=== PATIENT | female | born 1935 | race Caucasian/White ===

== ENCOUNTER 2017-06-14 16:25 | Inpatient (IN) | payer MEDICARE ==
[2017-06-14 17:36] VITALS: BP 154/78
[2017-06-14] MEDS ORDERED: Magnesium Hydroxide (MOM) 30 mL UDC PO PRN ×2 (18:02→21:34)
[2017-06-15] MEDS: Levothyroxine 0.1 Mg Tab PO SCH (06:47)
[2017-06-15] MEDS ORDERED: Ferrous Sulfate 325 MG TAB PO SCH (09:00)
[2017-06-15] MEDS ORDERED: Multivitamin w/ Minerals Tab PO SCH (09:00)
[2017-06-15] MEDS ORDERED: LEVOTHYROXINE SODIUM 200 MCG PO SCH (09:00)
[2017-06-15] MEDS: Ferrous Sulfate 325 MG TAB PO SCH (09:24)
[2017-06-15] MEDS: Multivitamin w/ Minerals Tab PO SCH (09:24)
--- NOTE | 2017-06-15 12:56 | Psychosocial Evaluation ---
DATE OF SERVICE: 06/15/2017 IDENTIFYING INFORMATION: The patient is an 81-year-old female. CHIEF COMPLAINT: No answer. HISTORY OF PRESENT ILLNESS: The patient was admitted on the hope for danger to others, grave disability. She was seen by Dr. Vance, who put her on hold and that was yesterday in the afternoon. The patient herself was a poor historian. She was trying to hit staff with medical equipment, closed fist. She was delusional, confused, disoriented, requiring redirection. When I talked to her, she thought she was fighting with her granddaughter. Unable to give me information, very irritable, angry. PAST PSYCHIATRIC HISTORY: Unobtainable. She refused to give me any answers. ALLERGIES: She has no known drug allergies. MEDICATIONS: The patient was on Risperdal 2 mg at bedtime, trazodone 50 mg at bedtime, Ativan 1 mg every 4 hours as needed, iron 325 mg daily, and Pletal 100 mg twice a day, Calciferol, vitamin D 5000 units daily and Lotensin for blood pressure 20 mg daily, and trazodone 50 mg at bedtime. FAMILY AND SOCIAL HISTORY: The patient reported that she is and she have 2 children, a boy with 60 years of age and a girl with 50 years of age. She started talking about granddaughters, started rambling. Unable to give me further information nor could tell me what she did for living and if there is any substance abuse or any history of abuse or any family history. MENTAL STATUS EXAMINATION: The patient is appropriately dressed, not well groomed. She was feeding herself. She was irritable, angry, uncooperative, unable to do a formal mental status exam because of her agitation, irritability, internally preoccupied. Her [facility] memory is poor, unable to tell me her age. Recent memory is poor. She cannot remember events led to her admission. Her insight and judgment is impaired. IMPRESSION: AXIS I: Rule out bipolar disorder with psychosis and depression. MEDICAL DIAGNOSES: Deferred to the medical doctor. Her assets, she is accepting treatment. Negative poor coping skills. INITIAL TREATMENT PLAN: The patient will be continued with Risperdal. We will do group therapy, milieu therapy, individual therapy. ESTIMATED LENGTH OF STAY: 8-10 days. DISCHARGE CRITERIA: Decreasing psychosis, agitation. After discharge, outpatient treatment. [facility]# [id number]
--- NOTE | 2017-06-15 13:40 | Internal Medicine Prog Note ---
Internal Medicine Subjective - Subjective Service Date: 06/15/17 ([id number]) Internal Medicine Objective - Physical Exam Vitals and I&O: Vital Signs Temp 97.8 F 06/14/17 17:08 Pulse 68 06/15/17 09:24 Resp 20 06/14/17 17:08 BP 133/70 06/15/17 09:24 Pulse Ox Intake & Output 06/14/17 06/15/17 06/15/17 18:59 06:59 18:59 Weight (lbs) 157 lb 4.8 oz Active Medications: Current Medications Benazepril HCl (Lotensin) 20 mg PO DAILY [facility] Stop: 08/14/17 08:59 Last Admin: 06/15/17 09:24 Dose: Not Given Cholecalciferol (Vitamin D3) 5,000 iu PO DAILY [facility] Stop: 08/14/17 08:59 Last Admin: 06/15/17 09:24 Dose: Not Given Cilostazol (Pletal) 100 mg PO BID [facility] Stop: 08/14/17 08:59 Last Admin: 06/15/17 09:24 Dose: Not Given Ferrous Sulfate (Iron) 325 mg PO DAILY [facility] Stop: 08/14/17 08:59 Last Admin: 06/15/17 09:24 Dose: Not Given Levothyroxine Sodium (Synthroid) 0.2 mg PO QDAC [facility] Stop: 08/14/17 07:29 Last Admin: 06/15/17 06:47 Dose: Not Given Lorazepam (Ativan) 1 mg PO Q4HR PRN; Protocol PRN Reason: Agitation Stop: 08/13/17 18:14 Magnesium Hydroxide (Milk Of Magnesia) 30 ml PO BID PRN PRN Reason: Constipation Stop: 08/13/17 18:01 Risperidone (Risperdal) 2 mg PO HS [facility] PRN Reason: Protocol Stop: 08/13/17 20:59 Last Admin: 06/14/17 21:30 Dose: Not Given Trazodone HCl (Desyrel) 25 mg PO HS [facility] PRN Reason: Protocol Stop: 08/13/17 20:59 Last Admin: 06/14/17 21:21 Dose: Not Given Internal Medicine Assmt/Plan - Assessment Assessment: htn dementia psychosis hypothyroidism
--- NOTE | 2017-06-15 13:59 | History & Physical ---
ADMIT DATE: 06/15/2017 CHIEF COMPLAINT: Agitation. HISTORY OF PRESENT ILLNESS: This is an 81-year-old female who was transferred from [facility] due to aggressive behavior towards staff and being delusional and confused and disoriented. The patient is now admitted to the Geropsych Unit. PAST MEDICAL HISTORY: Hypertension, hypothyroidism, dementia, psychosis. PAST SURGICAL HISTORY: Unknown. ALLERGIES: No drug allergies. MEDICATIONS: Please see medication sheet. FAMILY HISTORY: Noncontributory. SOCIAL HISTORY: The patient is a jail resident. REVIEW OF SYSTEMS: Unable to obtain due to patient's mental status. The patient is confused. PHYSICAL EXAMINATION: GENERAL: This is an elderly female, awake, confused and agitated. VITAL SIGNS: Temperature 97.8, heart rate 72, blood pressure 154/78, respirations 20. HEENT: Head, normocephalic, atraumatic. NECK: Supple. No mass. LUNGS: Clear bilaterally. ABDOMEN: Soft, nontender. ASSESSMENT: 1. Agitation. 2. Hypertension. 3. Hypothyroidism. 4. Dementia. 5. Psychosis. PLAN: We will monitor patient's blood pressure. We will adjust patient's blood pressure medications accordingly. We will continue to follow this patient. JOB# [id number]
[2017-06-16] MEDS: Levothyroxine 0.1 Mg Tab PO SCH (06:53)
[2017-06-16] MEDS: Multivitamin w/ Minerals Tab PO SCH (09:50)
[2017-06-16] MEDS: Ferrous Sulfate 325 MG TAB PO SCH (09:50)
--- NOTE | 2017-06-16 20:08 | Progress Notes ---
DATE: 06/16/[address] Sndyer. Case was discussed with staff of patient and reviewed records. The patient continues to be irritable, unpredictable, impulsive and needing redirection. Continues to be uncooperative. Continues to have poor insight about the whole situation and how she ended up here. Continues to be at risk because of her aggressive behavior. She has been compliant with her medication with no side effects, no sedation, nausea, no extrapyramidal symptoms and she is on Risperdal 2 mg at bedtime, trazodone 25 mg at bedtime. We will continue to work with the patient in group therapy, milieu therapy, and adjust medications as needed. JOB# [id number]
[2017-06-17] MEDS: Levothyroxine 0.1 Mg Tab PO SCH (06:39)
[2017-06-17] MEDS: Multivitamin w/ Minerals Tab PO SCH (08:59)
[2017-06-17] MEDS: Ferrous Sulfate 325 MG TAB PO SCH (08:59)
--- NOTE | 2017-06-17 16:45 | Internal Medicine Prog Note ---
Internal Medicine Subjective - Subjective Service Date: 06/17/17 Patient seen and examined:: with staff Patient is:: awake, verbal Per staff patient has:: tolerating meds Internal Medicine Objective - Physical Exam Vitals and I&O: Vital Signs Temp 98.8 F 06/17/17 14:45 Pulse 60 06/17/17 14:45 Resp 20 06/17/17 14:45 BP 150/81 06/17/17 14:45 Pulse Ox 95 06/17/17 14:45 Intake & Output 06/16/17 06/17/17 06/17/17 18:59 06:59 18:59 Other: Stool Characteristics Black Soft Liquid Active Medications: Current Medications Benazepril HCl (Lotensin) 20 mg PO DAILY [facility] Stop: 08/14/17 08:59 Last Admin: 06/17/17 08:59 Dose: Not Given Cholecalciferol (Vitamin D3) 5,000 iu PO DAILY [facility] Stop: 08/14/17 08:59 Last Admin: 06/17/17 08:59 Dose: Not Given Cilostazol (Pletal) 100 mg PO BID [facility] Stop: 08/14/17 08:59 Last Admin: 06/17/17 08:59 Dose: Not Given Ferrous Sulfate (Iron) 325 mg PO DAILY [facility] Stop: 08/14/17 08:59 Last Admin: 06/17/17 08:59 Dose: Not Given Levothyroxine Sodium (Synthroid) 0.2 mg PO QDAC [facility] Stop: 08/14/17 07:29 Last Admin: 06/17/17 06:39 Dose: Not Given Lorazepam (Ativan) 1 mg PO Q4HR PRN; Protocol PRN Reason: Agitation Stop: 08/13/17 18:14 Magnesium Hydroxide (Milk Of Magnesia) 30 ml PO BID PRN PRN Reason: Constipation Stop: 08/13/17 18:01 Mupirocin (Bactroban Oint) 1 appl NS BID [facility] Stop: 06/21/17 17:01 Last Admin: 06/17/17 08:59 Dose: Not Given Risperidone (Risperdal) 2 mg PO HS [facility] PRN Reason: Protocol Stop: 08/13/17 20:59 Last Admin: 06/16/17 22:59 Dose: Not Given Trazodone HCl (Desyrel) 25 mg PO HS [facility] PRN Reason: Protocol Stop: 08/13/17 20:59 Last Admin: 06/16/17 22:59 Dose: Not Given General: alert HEENT: NC/AT, PERRLA Neck: Supple Lungs: CTAB Cardiovascular: RRR Abdomen: soft, non-tender, non-distended, positive bowel sound Neurological: alert Internal Medicine Assmt/Plan - Assessment Assessment: htn dementia psychosis hypothyroidism - Plan Plan: monitor bp will adjust bp meds accordingly continue current orders
[2017-06-18] MEDS: Levothyroxine 0.1 Mg Tab PO SCH (06:41)
[2017-06-18] MEDS: Multivitamin w/ Minerals Tab PO SCH (08:06)
[2017-06-18] MEDS: Ferrous Sulfate 325 MG TAB PO SCH (08:06)
--- NOTE | 2017-06-18 13:32 | Internal Medicine Prog Note ---
Internal Medicine Subjective - Subjective Service Date: 06/18/17 Patient is:: awake, verbal Per staff patient has:: tolerating meds Internal Medicine Objective - Physical Exam Vitals and I&O: Vital Signs Temp 98.8 F 06/17/17 14:45 Pulse 60 06/17/17 14:45 Resp 20 06/17/17 14:45 BP 150/81 06/17/17 14:45 Pulse Ox 95 06/17/17 14:45 Intake & Output 06/17/17 06/18/17 06/18/17 18:59 06:59 18:59 Other: Stool Characteristics Soft Liquid Active Medications: Current Medications Benazepril HCl (Lotensin) 20 mg PO DAILY [facility] Stop: 08/14/17 08:59 Last Admin: 06/18/17 08:06 Dose: Not Given Cholecalciferol (Vitamin D3) 5,000 iu PO DAILY [facility] Stop: 08/14/17 08:59 Last Admin: 06/18/17 08:06 Dose: Not Given Cilostazol (Pletal) 100 mg PO BID [facility] Stop: 08/14/17 08:59 Last Admin: 06/18/17 08:06 Dose: Not Given Ferrous Sulfate (Iron) 325 mg PO DAILY [facility] Stop: 08/14/17 08:59 Last Admin: 06/18/17 08:06 Dose: Not Given Levothyroxine Sodium (Synthroid) 0.2 mg PO QDAC [facility] Stop: 08/14/17 07:29 Last Admin: 06/18/17 06:41 Dose: Not Given Lorazepam (Ativan) 1 mg PO Q4HR PRN; Protocol PRN Reason: Agitation Stop: 08/13/17 18:14 Magnesium Hydroxide (Milk Of Magnesia) 30 ml PO BID PRN PRN Reason: Constipation Stop: 08/13/17 18:01 Mupirocin (Bactroban Oint) 1 appl NS BID [facility] Stop: 06/21/17 17:01 Last Admin: 06/18/17 08:06 Dose: Not Given Risperidone (Risperdal) 2 mg PO HS [facility] PRN Reason: Protocol Stop: 08/13/17 20:59 Last Admin: 06/17/17 21:06 Dose: Not Given Trazodone HCl (Desyrel) 25 mg PO HS [facility] PRN Reason: Protocol Stop: 08/13/17 20:59 Last Admin: 06/17/17 21:07 Dose: Not Given General: alert HEENT: NC/AT, PERRLA Neck: Supple Lungs: CTAB Cardiovascular: RRR Abdomen: soft, non-tender, non-distended, positive bowel sound Neurological: alert Internal Medicine Assmt/Plan - Assessment Assessment: htn dementia psychosis hypothyroidism - Plan Plan: monitor bp will adjust bp meds accordingly continue current orders
[2017-06-19] MEDS: Levothyroxine 0.1 Mg Tab PO SCH (06:47)
--- NOTE | 2017-06-19 07:23 | Progress Notes ---
DATE: 06/17/2017 SUBJECTIVE: The patient seen, chart reviewed, and discussed with staff. The patient continues to be irritable, intrusive with poor boundaries and unpredictable, requiring numerous redirections, continues to have very poor recollection of events leading to admission and very disoriented. She has, however, been compliant with medications, following unit rules with minimal redirections. PLAN: The patient continues to be very confused, unpredictable and impulsive. It is felt that she will require continued inpatient care for stabilization and treatment. We will monitor the patient on a daily basis for response to medications and titrate medications as needed. [facility]# [id number]
--- NOTE | 2017-06-19 07:27 | Progress Notes ---
DATE: SUBJECTIVE: The patient seen, chart reviewed, and discussed with staff. The patient continues to be very irritable, agitated, impulsive, and unpredictable. She requires numerous redirections. She has, however, been compliant with medications, following unit rules with minimal redirections. PLAN: The patient continues to be unpredictable and impulsive. It is felt that she will require continued inpatient care for stabilization and treatment. We will monitor the patient on a daily basis for response to medications and titrate medications as needed. JOB# [id number]
[2017-06-19] MEDS: Multivitamin w/ Minerals Tab PO SCH (14:13)
[2017-06-19] MEDS: Ferrous Sulfate 325 MG TAB PO SCH (14:13)
--- NOTE | 2017-06-19 15:01 | Internal Medicine Prog Note ---
Internal Medicine Subjective - Subjective Patient seen and examined:: with staff, chart reviewed Patient is:: awake, verbal, interactive Per staff patient has:: no adverse event, no episodes of fall, poor oral intake , confused, tolerating meds Internal Medicine Objective - Physical Exam Vitals and I&O: Vital Signs Temp 97.9 F 06/18/17 16:13 Pulse 74 06/18/17 16:13 Resp 20 06/18/17 16:13 BP 166/91 06/18/17 16:13 Pulse Ox 92 06/18/17 16:13 Intake & Output 06/18/17 06/19/17 06/19/17 18:59 06:59 18:59 Intake Total 120 Balance 120 Intake: Oral 120 Other: # Voids 1 # Bowel Movements 0 Active Medications: Current Medications Benazepril HCl (Lotensin) 20 mg PO DAILY [facility] Stop: 08/14/17 08:59 Last Admin: 06/19/17 14:13 Dose: Not Given Cholecalciferol (Vitamin D3) 5,000 iu PO DAILY [facility] Stop: 08/14/17 08:59 Last Admin: 06/19/17 14:13 Dose: Not Given Cilostazol (Pletal) 100 mg PO BID [facility] Stop: 08/14/17 08:59 Last Admin: 06/19/17 14:13 Dose: Not Given Ferrous Sulfate (Iron) 325 mg PO DAILY [facility] Stop: 08/14/17 08:59 Last Admin: 06/19/17 14:13 Dose: Not Given Levothyroxine Sodium (Synthroid) 0.2 mg PO QDAC [facility] Stop: 08/14/17 07:29 Last Admin: 06/19/17 06:47 Dose: Not Given Lorazepam (Ativan) 1 mg PO Q4HR PRN; Protocol PRN Reason: Agitation Stop: 08/13/17 18:14 Magnesium Hydroxide (Milk Of Magnesia) 30 ml PO BID PRN PRN Reason: Constipation Stop: 08/13/17 18:01 Mupirocin (Bactroban Oint) 1 appl NS BID [facility] Stop: 06/21/17 17:01 Last Admin: 06/19/17 14:13 Dose: Not Given Risperidone (Risperdal) 2 mg PO HS [facility] PRN Reason: Protocol Stop: 08/13/17 20:59 Last Admin: 06/18/17 20:52 Dose: Not Given Trazodone HCl (Desyrel) 25 mg PO HS [facility] PRN Reason: Protocol Stop: 08/13/17 20:59 Last Admin: 06/18/17 20:52 Dose: Not Given General: alert HEENT: NC/AT, PERRLA Neck: Supple Lungs: CTAB Cardiovascular: RRR Abdomen: soft, non-tender, non-distended, positive bowel sound Neurological: disorganized Internal Medicine Assmt/Plan - Assessment Assessment: - Assessment Assessment: htn dementia psychosis hypothyroidism - Plan Plan: monitor bp will adjust bp meds accordingly continue current orders - Plan Plan: cpm
[2017-06-20] MEDS: Levothyroxine 0.1 Mg Tab PO SCH (06:47)
--- NOTE | 2017-06-20 10:25 | Progress Notes ---
DATE: 06/19/2017 SUBJECTIVE: The patient is currently in the hospital, disoriented, disorganized, talking about God telling her things. The patient was sent over from [facility], grandiose, refusing medications, talking about being in the [employer], trying to hit staff, highly impulsive, unpredictable. Medications were reviewed, but she is refusing. ASSESSMENT: The patient remains symptomatic, still bizarre, disorganized, and delusional. PLAN: The patient is conserved; however, we do not have the conservatorship paperwork. Once we get a copy from the court, we will start to administer medications. JOB# [id number]
--- NOTE | 2017-06-20 17:37 | Internal Medicine Prog Note ---
Internal Medicine Subjective - Subjective Service Date: 06/20/17 Patient is:: awake, verbal, interactive Per staff patient has:: no adverse event, no episodes of fall, poor oral intake , confused, tolerating meds Internal Medicine Objective - Physical Exam Vitals and I&O: Vital Signs Temp 0 F 06/20/17 05:06 Pulse 74 06/19/17 15:08 Resp 20 06/19/17 15:08 BP 157/88 06/19/17 15:08 Pulse Ox 95 06/19/17 15:08 Intake & Output 06/19/17 06/20/17 06/20/17 18:59 06:59 18:59 Intake Total 300 120 Balance 300 120 Intake: Oral 300 120 Other: # Voids 3 3 # Bowel Movements 0 Active Medications: Current Medications Benazepril HCl (Lotensin) 20 mg PO DAILY [facility] Stop: 08/14/17 08:59 Last Admin: 06/19/17 14:13 Dose: Not Given Cholecalciferol (Vitamin D3) 5,000 iu PO DAILY [facility] Stop: 08/14/17 08:59 Last Admin: 06/19/17 14:13 Dose: Not Given Cilostazol (Pletal) 100 mg PO BID [facility] Stop: 08/14/17 08:59 Last Admin: 06/19/17 14:13 Dose: Not Given Ferrous Sulfate (Iron) 325 mg PO DAILY [facility] Stop: 08/14/17 08:59 Last Admin: 06/19/17 14:13 Dose: Not Given Levothyroxine Sodium (Synthroid) 0.2 mg PO QDAC [facility] Stop: 08/14/17 07:29 Last Admin: 06/20/17 06:47 Dose: Not Given Lorazepam (Ativan) 1 mg PO Q4HR PRN; Protocol PRN Reason: Agitation Stop: 08/13/17 18:14 Magnesium Hydroxide (Milk Of Magnesia) 30 ml PO BID PRN PRN Reason: Constipation Stop: 08/13/17 18:01 Mupirocin (Bactroban Oint) 1 appl NS BID [facility] Stop: 06/21/17 17:01 Last Admin: 06/19/17 14:13 Dose: Not Given Risperidone (Risperdal) 2 mg PO HS [facility] PRN Reason: Protocol Stop: 08/13/17 20:59 Last Admin: 01/15/18 21:04 Dose: Not Given Trazodone HCl (Desyrel) 25 mg PO HS [facility] PRN Reason: Protocol Stop: 08/13/17 20:59 Last Admin: 06/19/17 21:04 Dose: Not Given General: alert HEENT: NC/AT, PERRLA Neck: Supple Lungs: CTAB Cardiovascular: RRR Abdomen: soft, non-tender, non-distended, positive bowel sound Neurological: disorganized Internal Medicine Assmt/Plan - Assessment Assessment: htn dementia psychosis hypothyroidism - Plan Plan: monitor bp will adjust bp meds accordingly continue current orders
[2017-06-20] MEDS: Multivitamin w/ Minerals Tab PO SCH (17:53)
[2017-06-20] MEDS: Ferrous Sulfate 325 MG TAB PO SCH (17:53)
--- NOTE | 2017-06-21 03:12 | Progress Notes ---
DATE: 06/20/2017 The patient remains symptomatic, threatening, demanding, stating that I am going to go to senior care, threatening to send me to senior care, still grandiose, refusing medications, talking not being in the [employer], remains paranoid, highly withdrawn, reclusive, impulsive, unpredictable, yelling at times. Medications reviewed. She is refusing, "I won't take them, I won't take them, I won't take them." ASSESSMENT: The patient symptomatic, bizarre, disorganized, still psychotic. PLAN: We will continue to monitor. The patient currently conserved. There are some questions about the date of the initiation of the conservatorship. Once this has been confirmed as August 17 of last year, I will go ahead and medicate against her will given power 8. JOB# [id number]
[2017-06-21] MEDS: Levothyroxine 0.1 Mg Tab PO SCH (06:30)
[2017-06-21] MEDS: Multivitamin w/ Minerals Tab PO SCH (08:00)
[2017-06-21] MEDS: Ferrous Sulfate 325 MG TAB PO SCH (08:00)
--- NOTE | 2017-06-21 13:47 | Internal Medicine Prog Note ---
Internal Medicine Subjective - Subjective Service Date: 06/21/17 Patient is:: awake, verbal, interactive Per staff patient has:: no adverse event, no episodes of fall, poor oral intake , confused, tolerating meds Internal Medicine Objective - Physical Exam Vitals and I&O: Vital Signs Temp 0 F 06/20/17 05:06 Pulse 74 06/19/17 15:08 Resp 20 06/19/17 15:08 BP 157/88 06/19/17 15:08 Pulse Ox 95 06/19/17 15:08 Intake & Output 06/20/17 06/21/17 06/21/17 18:59 06:59 18:59 Intake Total 250 Balance 250 Intake: Oral 250 Other: # Voids 2 # Bowel Movements 0 Active Medications: Current Medications Benazepril HCl (Lotensin) 20 mg PO DAILY [facility] Stop: 08/14/17 08:59 Last Admin: 06/21/17 08:00 Dose: Not Given Cholecalciferol (Vitamin D3) 5,000 iu PO DAILY [facility] Stop: 08/14/17 08:59 Last Admin: 06/21/17 08:00 Dose: Not Given Cilostazol (Pletal) 100 mg PO BID [facility] Stop: 08/14/17 08:59 Last Admin: 06/21/17 08:00 Dose: Not Given Ferrous Sulfate (Iron) 325 mg PO DAILY [facility] Stop: 08/14/17 08:59 Last Admin: 06/21/17 08:00 Dose: Not Given Levothyroxine Sodium (Synthroid) 0.2 mg PO QDAC [facility] Stop: 08/14/17 07:29 Last Admin: 06/21/17 06:30 Dose: Not Given Lorazepam (Ativan) 1 mg PO Q4HR PRN; Protocol PRN Reason: Agitation Stop: 08/13/17 18:14 Magnesium Hydroxide (Milk Of Magnesia) 30 ml PO BID PRN PRN Reason: Constipation Stop: 08/13/17 18:01 Mupirocin (Bactroban Oint) 1 appl NS BID [facility] Stop: 06/21/17 17:01 Last Admin: 06/21/17 08:00 Dose: Not Given Risperidone (Risperdal) 2 mg PO HS [facility] PRN Reason: Protocol Stop: 08/13/17 20:59 Last Admin: 06/20/17 20:36 Dose: Not Given Trazodone HCl (Desyrel) 25 mg PO HS [facility] PRN Reason: Protocol Stop: 08/13/17 20:59 Last Admin: 06/20/17 20:37 Dose: Not Given General: alert HEENT: NC/AT, PERRLA Neck: Supple Lungs: CTAB Cardiovascular: RRR Abdomen: soft, non-tender, non-distended, positive bowel sound Neurological: disorganized Internal Medicine Assmt/Plan - Assessment Assessment: htn dementia psychosis hypothyroidism - Plan Plan: monitor bp will adjust bp meds accordingly continue current orders Nutritional Asmnt/Malnutr-PDOC - Dietary Evaluation Malnutrition Findings (Please click <Entered> for more info): Nutritional Asmnt/Malnutrition Start: 06/21/17 13: 06 Text: Status: Complete Freq: Document 06/21/17 13:06 KIRILL (Rec: 06/21/17 13:21 KIRILLG [email or web address]) Nutritional Asmnt/Malnutrition Patient General Information Nutritional Screening Low Risk Diagnosis psychosis NOS Pertinent Medical Hx/Surgical Hx HTN, hypothyroidism, dementia, psychosis Subjective Information Pt seen sitting on bed at time of visit, confused. Per notes , PO intake 100%. Per NR note, pt refuses medications and care. Current Diet Order/ Nutrition Support mech soft ground Pertinent Medications vitamin D3, iron, synthroid Pertinent Labs no labs Nutritional Hx/Data Height 5 ft 5 in Height (Calculated Centimeters) 165.1 Current Weight (lbs) 157 lb 4.8 oz Weight (Calculated Kilograms) 71.4 Weight (Calculated Grams) 73884.1 [place] Body Weight 125 % [place] Body Weight 126 Body Mass Index (BMI) 26.2 Weight Status Overweight GI Symptoms GI Symptoms None Last BM 06/15 Difficult in: None Skin Integrity/Comment: skin tear on left hand first digit, cyst on right mandibular area Current %PO Good (75-100%) Estimated Nutritional Goals Calories/Kcals/Kg 25-30 Kcals Calculated [id number] Protein g/k Protein Calculated 57 Fluid: ml 1425-1710ml (1ml/kcal) Nutritional Problem No current Nutrition Prob Problem N/A Malnutrition Alert Protein-Calorie Malnutrition N/A Is there a minimum of two criteria No selected? Query Text:Check all the applicable criteria. A minimum of two criteria are recommended for diagnosis of either severe or non-severe malnutrition. Intervention/Recommendation Comments 1. Continue with current diet as ordered. 2. Monitor PO intake, wt, labs and skin integrity 3. F/U as low risk in 7 days, 06/27 Expected Outcomes/Goals Expected Outcomes/Goals 1. PO intake to meet at least 75% of nutritional needs. 2. Wt stability, skin to remain intact.
--- NOTE | 2017-06-22 02:28 | Progress Notes ---
DATE: SUBJECTIVE: The patient seen, chart reviewed, discussed with staff. The patient with yelling episodes, refusing medications, making odd statements such as "I don't like what you had to eat." The patient yelling at me, screaming, stating that she will not take medications, still talking about being in the [employer], still paranoid, withdrawn, reclusive, yelling and screaming episodes, currently gravely disabled and psychotic. ASSESSMENT: The patient remains symptomatic, bizarre, disorganized, still psychotic, yelling and screaming. PLAN: We will continue to monitor. I am trying to confirm the dates of her conservatorship. We will attempt to initiate antipsychotic medications as soon as possible. JOB# [id number]
[2017-06-22] MEDS: Levothyroxine 0.1 Mg Tab PO SCH (06:52)
[2017-06-22] MEDS ORDERED: Haloperidol Lactate 5 mg/mL 1mL Vial IM PRN (08:34)
[2017-06-22] MEDS: Ferrous Sulfate 325 MG TAB PO SCH (08:52)
[2017-06-22] MEDS: Multivitamin w/ Minerals Tab PO SCH (08:53)
--- NOTE | 2017-06-22 13:31 | Internal Medicine Prog Note ---
Internal Medicine Subjective - Subjective Service Date: 06/22/17 Patient is:: awake, verbal, interactive Per staff patient has:: no adverse event, no episodes of fall, poor oral intake , confused, tolerating meds Internal Medicine Objective - Physical Exam Vitals and I&O: Vital Signs Temp 0 F 06/20/17 05:06 Pulse 74 06/19/17 15:08 Resp 20 06/19/17 15:08 BP 157/88 06/19/17 15:08 Pulse Ox 95 06/19/17 15:08 Intake & Output 06/21/17 06/22/17 06/22/17 18:59 06:59 18:59 Intake Total 0 Balance 0 Intake: Oral 0 Active Medications: Current Medications Benazepril HCl (Lotensin) 20 mg PO DAILY [facility] Stop: 08/14/17 08:59 Last Admin: 06/22/17 08:51 Dose: Not Given Benztropine Mesylate (Cogentin) 0.5 mg PO BID [facility] Stop: 08/21/17 08:59 Last Admin: 06/22/17 08:52 Dose: Not Given Cholecalciferol (Vitamin D3) 5,000 iu PO DAILY [facility] Stop: 08/14/17 08:59 Last Admin: 06/22/17 08:52 Dose: Not Given Cilostazol (Pletal) 100 mg PO BID [facility] Stop: 08/14/17 08:59 Last Admin: 06/22/17 08:52 Dose: Not Given Ferrous Sulfate (Iron) 325 mg PO DAILY [facility] Stop: 08/14/17 08:59 Last Admin: 06/22/17 08:52 Dose: Not Given Haloperidol (Haldol) 2 mg PO BID [facility] PRN Reason: Protocol Stop: 08/21/17 08:59 Last Admin: 06/22/17 08:53 Dose: Not Given Haloperidol Lactate (Haldol) 2 mg IM BID PRN PRN Reason: Agitation Stop: 08/21/17 08:33 Levothyroxine Sodium (Synthroid) 0.2 mg PO QDAC [facility] Stop: 08/14/17 07:29 Last Admin: 06/22/17 06:52 Dose: Not Given Lorazepam (Ativan) 1 mg PO Q4HR PRN; Protocol PRN Reason: Agitation Stop: 08/13/17 18:14 Magnesium Hydroxide (Milk Of Magnesia) 30 ml PO BID PRN PRN Reason: Constipation Stop: 08/13/17 18:01 Trazodone HCl (Desyrel) 25 mg PO HS [facility] PRN Reason: Protocol Stop: 08/13/17 20:59 Last Admin: 06/21/17 21:28 Dose: Not Given General: alert HEENT: NC/AT, PERRLA Neck: Supple Lungs: CTAB Cardiovascular: RRR Abdomen: soft, non-tender, non-distended, positive bowel sound Neurological: disorganized Internal Medicine Assmt/Plan - Assessment Assessment: htn dementia psychosis hypothyroidism - Plan Plan: monitor bp will adjust bp meds accordingly continue current orders Nutritional Asmnt/Malnutr-PDOC - Dietary Evaluation Malnutrition Findings (Please click <Entered> for more info): Nutritional Asmnt/Malnutrition Start: 06/21/17 13: 06 Text: Status: Complete Freq: Document 06/21/17 13:06 EZE (Rec: 06/21/17 13:21 [email or web address] [id number]) Nutritional Asmnt/Malnutrition Patient General Information Nutritional Screening Low Risk Diagnosis psychosis NOS Pertinent Medical Hx/Surgical Hx HTN, hypothyroidism, dementia, psychosis Subjective Information Pt seen sitting on bed at time of visit, confused. Per notes , PO intake 100%. Per NR note, pt refuses medications and care. Current Diet Order/ Nutrition Support [facility] soft ground Pertinent Medications vitamin D3, iron, synthroid Pertinent Labs no labs Nutritional Hx/Data Height 5 ft 5 in Height (Calculated Centimeters) 165.1 Current Weight (lbs) 157 lb 4.8 oz Weight (Calculated Kilograms) 71.4 Weight (Calculated Grams) 94868.1 [place] Body Weight 125 % [place] Body Weight 126 Body Mass Index (BMI) 26.2 Weight Status Overweight GI Symptoms GI Symptoms None Last BM 06/15 Difficult in: None Skin Integrity/Comment: skin tear on left hand first digit, cyst on right mandibular area Current %PO Good (75-100%) Estimated Nutritional Goals Calories/Kcals/Kg 25-30 Kcals Calculated 7398-0636 Protein g/k Protein Calculated 57 Fluid: ml 1425-1710ml (1ml/kcal) Nutritional Problem No current Nutrition Prob Problem N/A Malnutrition Alert Protein-Calorie Malnutrition N/A Is there a minimum of two criteria No selected? Query Text:Check all the applicable criteria. A minimum of two criteria are recommended for diagnosis of either severe or non-severe malnutrition. Intervention/Recommendation Comments 1. Continue with current diet as ordered. 2. Monitor PO intake, wt, labs and skin integrity 3. F/U as low risk in 7 days, 06/27 Expected Outcomes/Goals Expected Outcomes/Goals 1. PO intake to meet at least 75% of nutritional needs. 2. Wt stability, skin to remain intact.
--- NOTE | 2017-06-23 02:05 | Progress Notes ---
DATE: 06/22/2017 SUBJECTIVE: The patient seen, chart reviewed, discussed with staff. The patient yelling, screaming, stating that people are the devil, stating that she does not want to take any medications, refusing medications. She is conserved with ____, we will initiate medications even against her will at this time. She remains psychotic, delusional, bizarre, reclusive, refusing treatment and care at times, yelling at staff. ASSESSMENT: The patient with ongoing psychotic agitation, symptomatic and psychotic, believing people around her are the devil. PLAN: We will continue to monitor. We will initiate Haldol with an IM backup for medication refusals. Given the severity of her ongoing symptoms, she is not safe for discharge. [facility]# [id number]
[2017-06-23] MEDS: Levothyroxine 0.1 Mg Tab PO SCH (06:38)
[2017-06-23] MEDS: Multivitamin w/ Minerals Tab PO SCH ×2 (09:12→14:25)
[2017-06-23] MEDS: Ferrous Sulfate 325 MG TAB PO SCH ×2 (09:12→14:25)
--- NOTE | 2017-06-23 14:09 | Internal Medicine Prog Note ---
Internal Medicine Subjective - Subjective Service Date: 06/23/17 Patient is:: awake, verbal, interactive Per staff patient has:: no adverse event, no episodes of fall, poor oral intake , confused, tolerating meds Internal Medicine Objective - Physical Exam Vitals and I&O: Vital Signs Temp 0 F 06/20/17 05:06 Pulse 74 06/19/17 15:08 Resp 20 06/19/17 15:08 BP 157/88 06/19/17 15:08 Pulse Ox 95 06/19/17 15:08 Intake & Output 06/22/17 06/23/17 06/23/17 18:59 06:59 18:59 Intake Total 60 Balance 60 Intake: Oral 60 Other: # Voids 1 Active Medications: Current Medications Benazepril HCl (Lotensin) 20 mg PO DAILY [facility] Stop: 08/14/17 08:59 Last Admin: 06/23/17 09:35 Dose: Not Given Benztropine Mesylate (Cogentin) 0.5 mg PO BID [facility] Stop: 08/21/17 08:59 Last Admin: 06/23/17 09:35 Dose: Not Given Cholecalciferol (Vitamin D3) 5,000 iu PO DAILY [facility] Stop: 08/14/17 08:59 Last Admin: 06/22/17 08:52 Dose: Not Given Cilostazol (Pletal) 100 mg PO BID [facility] Stop: 08/14/17 08:59 Last Admin: 06/23/17 09:35 Dose: Not Given Ferrous Sulfate (Iron) 325 mg PO DAILY [facility] Stop: 08/14/17 08:59 Last Admin: 06/22/17 08:52 Dose: Not Given Haloperidol (Haldol) 2 mg PO BID [facility] PRN Reason: Protocol Stop: 08/21/17 08:59 Last Admin: 06/23/17 09:35 Dose: Not Given Haloperidol Lactate (Haldol) 2 mg IM BID PRN PRN Reason: Agitation Stop: 08/21/17 08:33 Levothyroxine Sodium (Synthroid) 0.2 mg PO QDAC [facility] Stop: 08/14/17 07:29 Last Admin: 06/23/17 06:38 Dose: Not Given Lorazepam (Ativan) 1 mg PO Q4HR PRN; Protocol PRN Reason: Agitation Stop: 08/13/17 18:14 Magnesium Hydroxide (Milk Of Magnesia) 30 ml PO BID PRN PRN Reason: Constipation Stop: 08/13/17 18:01 Trazodone HCl (Desyrel) 25 mg PO HS [facility] PRN Reason: Protocol Stop: 08/13/17 20:59 Last Admin: 06/22/17 20:06 Dose: Not Given General: alert HEENT: NC/AT, PERRLA Neck: Supple Lungs: CTAB Cardiovascular: RRR Abdomen: soft, non-tender, non-distended, positive bowel sound Neurological: disorganized Internal Medicine Assmt/Plan - Assessment Assessment: htn dementia psychosis hypothyroidism - Plan Plan: monitor bp will adjust bp meds accordingly continue current orders Nutritional Asmnt/Malnutr-PDOC - Dietary Evaluation Malnutrition Findings (Please click <Entered> for more info): Nutritional Asmnt/Malnutrition Start: 06/21/17 13: 06 Text: Status: Complete Freq: Document 06/21/17 13:06 EZE (Rec: 06/21/17 13:21 KIRILL [email or web address]) Nutritional Asmnt/Malnutrition Patient General Information Nutritional Screening Low Risk Diagnosis psychosis NOS Pertinent Medical Hx/Surgical Hx HTN, hypothyroidism, dementia, psychosis Subjective Information Pt seen sitting on bed at time of visit, confused. Per notes , PO intake 100%. Per NR note, pt refuses medications and care. Current Diet Order/ Nutrition Support [facility] soft ground Pertinent Medications vitamin D3, iron, synthroid Pertinent Labs no labs Nutritional Hx/Data Height 5 ft 5 in Height (Calculated Centimeters) 165.1 Current Weight (lbs) 157 lb 4.8 oz Weight (Calculated Kilograms) 71.4 Weight (Calculated Grams) 98200.1 [place] Body Weight 125 % [place] Body Weight 126 Body Mass Index (BMI) 26.2 Weight Status Overweight GI Symptoms GI Symptoms None Last BM 06/15 Difficult in: None Skin Integrity/Comment: skin tear on left hand first digit, cyst on right mandibular area Current %PO Good (75-100%) Estimated Nutritional Goals Calories/Kcals/Kg 25-30 Kcals Calculated 1306-6849 Protein g/k Protein Calculated 57 Fluid: ml 1425-1710ml (1ml/kcal) Nutritional Problem No current Nutrition Prob Problem N/A Malnutrition Alert Protein-Calorie Malnutrition N/A Is there a minimum of two criteria No selected? Query Text:Check all the applicable criteria. A minimum of two criteria are recommended for diagnosis of either severe or non-severe malnutrition. Intervention/Recommendation Comments 1. Continue with current diet as ordered. 2. Monitor PO intake, wt, labs and skin integrity 3. F/U as low risk in 7 days, 06/27 Expected Outcomes/Goals Expected Outcomes/Goals 1. PO intake to meet at least 75% of nutritional needs. 2. Wt stability, skin to remain intact.
--- NOTE | 2017-06-23 23:54 | Progress Notes ---
DATE: 06/23/2017 Case was discussed with staff of the patient and the patient continues to have yelling and screaming. Paranoid could be of people trying to harm her. Refusing medication, at times, she is conserved. Dr. Snyder again initiated medication because of her psychosis, delusional behavior, bizarre behavior, refusing care and had her start on Haldol 2 mg twice a day to be given IM if refuses p.o. and today, she is not acting out that she has been described before. No extrapyramidal symptoms. No sedation. No nausea. We will continue outpatient group therapy and milieu therapy, and adjust medications as needed. JOB# [id number]
[2017-06-24] MEDS: Levothyroxine 0.1 Mg Tab PO SCH (06:30)
[2017-06-24] MEDS: Multivitamin w/ Minerals Tab PO SCH (09:00)
[2017-06-24] MEDS: Ferrous Sulfate 325 MG TAB PO SCH (09:00)
--- NOTE | 2017-06-24 15:55 | Internal Medicine Prog Note ---
Internal Medicine Subjective - Subjective Service Date: 06/24/17 Patient is:: awake, verbal, interactive Per staff patient has:: no adverse event, no episodes of fall, poor oral intake , confused, tolerating meds Internal Medicine Objective - Physical Exam Vitals and I&O: Vital Signs Temp 0 F 06/20/17 05:06 Pulse 0 06/24/17 09:00 Resp 20 06/19/17 15:08 BP 0/0 06/24/17 09:00 Pulse Ox 95 06/19/17 15:08 Active Medications: Current Medications Benazepril HCl (Lotensin) 20 mg PO DAILY [facility] Stop: 08/14/17 08:59 Last Admin: 06/24/17 09:00 Dose: Not Given Benztropine Mesylate (Cogentin) 0.5 mg PO BID [facility] Stop: 08/21/17 08:59 Last Admin: 06/24/17 09:00 Dose: Not Given Cholecalciferol (Vitamin D3) 5,000 iu PO DAILY [facility] Stop: 08/14/17 08:59 Last Admin: 06/24/17 09:00 Dose: Not Given Cilostazol (Pletal) 100 mg PO BID [facility] Stop: 08/14/17 08:59 Last Admin: 06/24/17 09:00 Dose: Not Given Ferrous Sulfate (Iron) 325 mg PO DAILY [facility] Stop: 08/14/17 08:59 Last Admin: 06/24/17 09:00 Dose: Not Given Haloperidol (Haldol) 2 mg PO BID [facility] PRN Reason: Protocol Stop: 08/21/17 08:59 Last Admin: 06/24/17 09:00 Dose: Not Given Haloperidol Lactate (Haldol) 2 mg IM BID PRN PRN Reason: Agitation Stop: 08/21/17 08:33 Levothyroxine Sodium (Synthroid) 0.2 mg PO QDAC [facility] Stop: 08/14/17 07:29 Last Admin: 06/24/17 06:30 Dose: Not Given Lorazepam (Ativan) 1 mg PO Q4HR PRN; Protocol PRN Reason: Agitation Stop: 08/13/17 18:14 Magnesium Hydroxide (Milk Of Magnesia) 30 ml PO BID PRN PRN Reason: Constipation Stop: 08/13/17 18:01 Trazodone HCl (Desyrel) 25 mg PO HS [facility] PRN Reason: Protocol Stop: 08/13/17 20:59 Last Admin: 06/23/17 20:56 Dose: Not Given General: alert HEENT: NC/AT, PERRLA Neck: Supple Lungs: CTAB Cardiovascular: RRR Abdomen: soft, non-tender, non-distended, positive bowel sound Neurological: disorganized Internal Medicine Assmt/Plan - Assessment Assessment: htn dementia psychosis hypothyroidism - Plan Plan: monitor bp will adjust bp meds accordingly continue current orders Nutritional Asmnt/Malnutr-PDOC - Dietary Evaluation Malnutrition Findings (Please click <Entered> for more info): Nutritional Asmnt/Malnutrition Start: 06/21/17 13: 06 Text: Status: Complete Freq: Document 06/21/17 13:06 EZE (Rec: 06/21/17 13:21 EZE [email or web address]) Nutritional Asmnt/Malnutrition Patient General Information Nutritional Screening Low Risk Diagnosis psychosis NOS Pertinent Medical Hx/Surgical Hx HTN, hypothyroidism, dementia, psychosis Subjective Information Pt seen sitting on bed at time of visit, confused. Per notes , PO intake 100%. Per NR note, pt refuses medications and care. Current Diet Order/ Nutrition Support [facility] soft ground Pertinent Medications vitamin D3, iron, synthroid Pertinent Labs no labs Nutritional Hx/Data Height 5 ft 5 in Height (Calculated Centimeters) 165.1 Current Weight (lbs) 157 lb 4.8 oz Weight (Calculated Kilograms) 71.4 Weight (Calculated Grams) 86820.1 [place] Body Weight 125 % [place] Body Weight 126 Body Mass Index (BMI) 26.2 Weight Status Overweight GI Symptoms GI Symptoms None Last BM 06/15 Difficult in: None Skin Integrity/Comment: skin tear on left hand first digit, cyst on right mandibular area Current %PO Good (75-100%) Estimated Nutritional Goals Calories/Kcals/Kg 25-30 Kcals Calculated 1110-6320 Protein g/k Protein Calculated 57 Fluid: ml 1425-1710ml (1ml/kcal) Nutritional Problem No current Nutrition Prob Problem N/A Malnutrition Alert Protein-Calorie Malnutrition N/A Is there a minimum of two criteria No selected? Query Text:Check all the applicable criteria. A minimum of two criteria are recommended for diagnosis of either severe or non-severe malnutrition. Intervention/Recommendation Comments 1. Continue with current diet as ordered. 2. Monitor PO intake, wt, labs and skin integrity 3. F/U as low risk in 7 days, 06/27 Expected Outcomes/Goals Expected Outcomes/Goals 1. PO intake to meet at least 75% of nutritional needs. 2. Wt stability, skin to remain intact.
--- NOTE | 2017-06-24 20:22 | Progress Notes ---
DATE: 06/24/[address] Snyder. Case was discussed with staff of the patient, reviewed records. The patient apparently has been refusing medication, so Dr. Snyder initiated Haldol Decanoate on her as she is conserved. The patient also apparently she is refusing to allow the staff to dress her. When I talked to her, she was in bed, a lot of blood on the pillow. 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 She was naked on the upper side of her body. She was easily agitated, irritable, unpredictable, impulsive, continues to be unable to make safe plan for self-care. She was upset with the line of questioning, I was having and loud. We will continue to work with the patient in group therapy, milieu therapy and adjust medications as needed. JOB# [id number]
[2017-06-25] MEDS: Levothyroxine 0.1 Mg Tab PO SCH (06:56)
[2017-06-25] MEDS: Ferrous Sulfate 325 MG TAB PO SCH (09:43)
[2017-06-25] MEDS: Multivitamin w/ Minerals Tab PO SCH (09:44)
--- NOTE | 2017-06-25 13:38 | Internal Medicine Prog Note ---
Internal Medicine Subjective - Subjective Service Date: 06/25/17 Patient is:: awake, verbal, interactive Per staff patient has:: no adverse event, no episodes of fall, poor oral intake , confused, tolerating meds Internal Medicine Objective - Physical Exam Vitals and I&O: Vital Signs Temp 0 F 06/20/17 05:06 Pulse 77 06/25/17 09:42 Resp 20 06/19/17 15:08 BP 130/82 06/25/17 09:42 Pulse Ox 95 06/19/17 15:08 Intake & Output 06/24/17 06/25/17 06/25/17 18:59 06:59 18:59 Intake Total 600 Balance 600 Intake: Oral 600 Other: # Voids 3 Active Medications: Current Medications Benazepril HCl (Lotensin) 20 mg PO DAILY [facility] Stop: 08/14/17 08:59 Last Admin: 06/25/17 09:42 Dose: Not Given Benztropine Mesylate (Cogentin) 0.5 mg PO BID [facility] Stop: 08/21/17 08:59 Last Admin: 06/25/17 09:43 Dose: Not Given Cholecalciferol (Vitamin D3) 5,000 iu PO DAILY [facility] Stop: 08/14/17 08:59 Last Admin: 06/25/17 09:43 Dose: Not Given Cilostazol (Pletal) 100 mg PO BID [facility] Stop: 08/14/17 08:59 Last Admin: 06/25/17 09:43 Dose: Not Given Ferrous Sulfate (Iron) 325 mg PO DAILY [facility] Stop: 08/14/17 08:59 Last Admin: 06/25/17 09:43 Dose: Not Given Haloperidol (Haldol) 2 mg PO BID [facility] PRN Reason: Protocol Stop: 08/21/17 08:59 Last Admin: 06/25/17 09:43 Dose: Not Given Haloperidol Lactate (Haldol) 2 mg IM BID PRN PRN Reason: Agitation Stop: 08/21/17 08:33 Levothyroxine Sodium (Synthroid) 0.2 mg PO QDAC [facility] Stop: 08/14/17 07:29 Last Admin: 06/25/17 06:56 Dose: Not Given Lorazepam (Ativan) 1 mg PO Q4HR PRN; Protocol PRN Reason: Agitation Stop: 08/13/17 18:14 Magnesium Hydroxide (Milk Of Magnesia) 30 ml PO BID PRN PRN Reason: Constipation Stop: 08/13/17 18:01 Trazodone HCl (Desyrel) 25 mg PO HS [facility] PRN Reason: Protocol Stop: 08/13/17 20:59 Last Admin: 06/24/17 21:48 Dose: Not Given General: alert HEENT: NC/AT, PERRLA Neck: Supple Lungs: CTAB Cardiovascular: RRR Abdomen: soft, non-tender, non-distended, positive bowel sound Neurological: disorganized Internal Medicine Assmt/Plan - Assessment Assessment: htn dementia psychosis hypothyroidism - Plan Plan: monitor bp will adjust bp meds accordingly continue current orders Nutritional Asmnt/Malnutr-PDOC - Dietary Evaluation Malnutrition Findings (Please click <Entered> for more info): Nutritional Asmnt/Malnutrition Start: 06/21/17 13: 06 Text: Status: Complete Freq: Document 06/21/17 13:06 EZE (Rec: 06/21/17 13:21 KIRILL [email or web address]) Nutritional Asmnt/Malnutrition Patient General Information Nutritional Screening Low Risk Diagnosis psychosis NOS Pertinent Medical Hx/Surgical Hx HTN, hypothyroidism, dementia, psychosis Subjective Information Pt seen sitting on bed at time of visit, confused. Per notes , PO intake 100%. Per NR note, pt refuses medications and care. Current Diet Order/ Nutrition Support [facility] soft [facility] Pertinent Medications vitamin D3, iron, synthroid Pertinent Labs no labs Nutritional Hx/Data Height 5 ft 5 in Height (Calculated Centimeters) 165.1 Current Weight (lbs) 157 lb 4.8 oz Weight (Calculated Kilograms) 71.4 Weight (Calculated Grams) 31744.1 [place] Body Weight 125 % [place] Body Weight 126 Body Mass Index (BMI) 26.2 Weight Status Overweight GI Symptoms GI Symptoms None Last BM 06/15 Difficult in: None Skin Integrity/Comment: skin tear on left hand first digit, cyst on right mandibular area Current %PO Good (75-100%) Estimated Nutritional Goals Calories/Kcals/Kg 25-30 Kcals Calculated 2169-8666 Protein g/k Protein Calculated 57 Fluid: ml 1425-1710ml (1ml/kcal) Nutritional Problem No current Nutrition Prob Problem N/A Malnutrition Alert Protein-Calorie Malnutrition N/A Is there a minimum of two criteria No selected? Query Text:Check all the applicable criteria. A minimum of two criteria are recommended for diagnosis of either severe or non-severe malnutrition. Intervention/Recommendation Comments 1. Continue with current diet as ordered. 2. Monitor PO intake, wt, labs and skin integrity 3. F/U as low risk in 7 days, 06/27 Expected Outcomes/Goals Expected Outcomes/Goals 1. PO intake to meet at least 75% of nutritional needs. 2. Wt stability, skin to remain intact.
--- NOTE | 2017-06-25 18:09 | Progress Notes ---
DATE: 06/25/2017 Case was discussed with staff of the patient. The patient continues to be irritable, continues to be hard to redirect. She has been refusing medication. Dr. Snyder did add Haldol to be given IM Risperdal; however, they do not have the conservator paper. They believe that it , so Dr. Snyder may have to release the patient or unless to get the conservator papers right. The patient continues to have poor insight, not ready to go because of her acting out behavior. Unable to take care of herself or make safe plan for self-care. We will continue the patient in group therapy, milieu therapy, adjust medications as needed. JOB# [id number]
[2017-06-26] MEDS: Levothyroxine 0.1 Mg Tab PO SCH (06:34)
[2017-06-26] MEDS: Ferrous Sulfate 325 MG TAB PO SCH (09:26)
[2017-06-26] MEDS: Multivitamin w/ Minerals Tab PO SCH (09:27)
--- NOTE | 2017-06-26 13:38 | Internal Medicine Prog Note ---
Internal Medicine Subjective - Subjective Patient seen and examined:: with staff, chart reviewed Patient is:: awake, verbal, interactive Per staff patient has:: no adverse event, no episodes of fall, poor oral intake , confused, tolerating meds Internal Medicine Objective - Physical Exam Vitals and I&O: Vital Signs Temp 0 F 06/20/17 05:06 Pulse 77 06/25/17 09:42 Resp 20 06/19/17 15:08 BP 130/82 06/25/17 09:42 Pulse Ox 95 06/19/17 15:08 Intake & Output 06/25/17 06/26/17 06/26/17 18:59 06:59 18:59 Intake Total 900 Balance 900 Intake: Oral 900 Other: # Voids 3 Active Medications: Current Medications Benazepril HCl (Lotensin) 20 mg PO DAILY [facility] Stop: 08/14/17 08:59 Last Admin: 06/26/17 09:24 Dose: Not Given Benztropine Mesylate (Cogentin) 0.5 mg PO BID [facility] Stop: 08/21/17 08:59 Last Admin: 06/26/17 09:25 Dose: Not Given Cholecalciferol (Vitamin D3) 5,000 iu PO DAILY [facility] Stop: 08/14/17 08:59 Last Admin: 06/26/17 09:25 Dose: Not Given Cilostazol (Pletal) 100 mg PO BID [facility] Stop: 08/14/17 08:59 Last Admin: 06/26/17 09:26 Dose: Not Given Ferrous Sulfate (Iron) 325 mg PO DAILY [facility] Stop: 08/14/17 08:59 Last Admin: 06/26/17 09:26 Dose: Not Given Haloperidol (Haldol) 2 mg PO BID [facility] PRN Reason: Protocol Stop: 08/21/17 08:59 Last Admin: 06/26/17 09:26 Dose: Not Given Haloperidol Lactate (Haldol) 2 mg IM BID PRN PRN Reason: Agitation Stop: 08/21/17 08:33 Levothyroxine Sodium (Synthroid) 0.2 mg PO QDAC [facility] Stop: 08/14/17 07:29 Last Admin: 06/26/17 06:34 Dose: Not Given Lorazepam (Ativan) 1 mg PO Q4HR PRN; Protocol PRN Reason: Agitation Stop: 08/13/17 18:14 Magnesium Hydroxide (Milk Of Magnesia) 30 ml PO BID PRN PRN Reason: Constipation Stop: 08/13/17 18:01 Trazodone HCl (Desyrel) 25 mg PO HS [facility] PRN Reason: Protocol Stop: 08/13/17 20:59 Last Admin: 06/25/17 20:28 Dose: Not Given General: demented HEENT: NC/AT, PERRLA Neck: Supple Lungs: CTAB Cardiovascular: RRR Abdomen: soft, non-tender, non-distended, positive bowel sound Neurological: disorganized Internal Medicine Assmt/Plan - Assessment Assessment: - Assessment Assessment: htn dementia psychosis hypothyroidism - Plan Plan: monitor bp will adjust bp meds accordingly continue current orders - Plan Plan: cpm Nutritional Asmnt/Malnutr-PDOC - Dietary Evaluation Malnutrition Findings (Please click <Entered> for more info): Nutritional Asmnt/Malnutrition Start: 06/21/17 13: 06 Text: Status: Complete Freq: Document 06/21/17 13:06 EZE (Rec: 06/21/17 13:21 KIRILL [email or web address]) Nutritional Asmnt/Malnutrition Patient General Information Nutritional Screening Low Risk Diagnosis psychosis NOS Pertinent Medical Hx/Surgical Hx HTN, hypothyroidism, dementia, psychosis Subjective Information Pt seen sitting on bed at time of visit, confused. Per notes , PO intake 100%. Per NR note, pt refuses medications and care. Current Diet Order/ Nutrition Support [facility] soft ground Pertinent Medications vitamin D3, iron, synthroid Pertinent Labs no labs Nutritional Hx/Data Height 1.65 m Height (Calculated Centimeters) 165.1 Current Weight (lbs) 71.35 kg Weight (Calculated Kilograms) 71.4 Weight (Calculated Grams) 38922.1 [place] Body Weight 125 % [place] Body Weight 126 Body Mass Index (BMI) 26.2 Weight Status Overweight GI Symptoms GI Symptoms None Last BM 06/15 Difficult in: None Skin Integrity/Comment: skin tear on left hand first digit, cyst on right mandibular area Current %PO Good (75-100%) Estimated Nutritional Goals Calories/Kcals/Kg 25-30 Kcals Calculated 9263-3325 Protein g/k Protein Calculated 57 Fluid: ml 1425-1710ml (1ml/kcal) Nutritional Problem No current Nutrition Prob Problem N/A Malnutrition Alert Protein-Calorie Malnutrition N/A Is there a minimum of two criteria No selected? Query Text:Check all the applicable criteria. A minimum of two criteria are recommended for diagnosis of either severe or non-severe malnutrition. Intervention/Recommendation Comments 1. Continue with current diet as ordered. 2. Monitor PO intake, wt, labs and skin integrity 3. F/U as low risk in 7 days, 06/27 Expected Outcomes/Goals Expected Outcomes/Goals 1. PO intake to meet at least 75% of nutritional needs. 2. Wt stability, skin to remain intact.
--- NOTE | 2017-06-27 03:44 | Progress Notes ---
DATE: 06/26/2017 SUBJECTIVE: The patient seen, chart reviewed, discussed with staff. The patient remains irritable, still psychotic, stating that she only gets her medications from God, refusing medications, bizarre, not making any sense, yelling, screaming at times, talking about the devil. ASSESSMENT: The patient remains symptomatic, bizarre, psychotic, delusional. MEDICATIONS: Reviewed. PLAN: Continue Haldol and Haldol backup for medication refusals. Given her ongoing symptoms and her psychotic symptoms, she is not safe for discharge. [facility]# [id number]
[2017-06-27] MEDS: Levothyroxine 0.1 Mg Tab PO SCH (06:33)
[2017-06-27] MEDS: Multivitamin w/ Minerals Tab PO SCH (08:05)
[2017-06-27] MEDS: Ferrous Sulfate 325 MG TAB PO SCH (08:05)
--- NOTE | 2017-06-27 13:06 | Internal Medicine Prog Note ---
Internal Medicine Subjective - Subjective Patient seen and examined:: with staff, chart reviewed Patient is:: awake, verbal, interactive Per staff patient has:: no adverse event, no episodes of fall, poor oral intake , confused, tolerating meds Internal Medicine Objective - Physical Exam Vitals and I&O: Vital Signs Temp 98.8 F 06/26/17 16:20 Pulse 75 06/26/17 16:20 Resp 20 06/26/17 16:20 BP 125/70 06/26/17 16:20 Pulse Ox 97 06/26/17 16:20 Active Medications: Current Medications Benazepril HCl (Lotensin) 20 mg PO DAILY [facility] Stop: 08/14/17 08:59 Last Admin: 06/27/17 08:04 Dose: Not Given Benztropine Mesylate (Cogentin) 0.5 mg PO BID [facility] Stop: 08/21/17 08:59 Last Admin: 06/27/17 08:04 Dose: Not Given Cholecalciferol (Vitamin D3) 5,000 iu PO DAILY [facility] Stop: 08/14/17 08:59 Last Admin: 06/27/17 08:04 Dose: Not Given Cilostazol (Pletal) 100 mg PO BID [facility] Stop: 08/14/17 08:59 Last Admin: 06/27/17 08:05 Dose: Not Given Ferrous Sulfate (Iron) 325 mg PO DAILY [facility] Stop: 08/14/17 08:59 Last Admin: 06/27/17 08:05 Dose: Not Given Haloperidol (Haldol) 2 mg PO BID [facility] PRN Reason: Protocol Stop: 08/21/17 08:59 Last Admin: 06/27/17 08:05 Dose: Not Given Levothyroxine Sodium (Synthroid) 0.2 mg PO QDAC [facility] Stop: 08/14/17 07:29 Last Admin: 06/27/17 06:33 Dose: Not Given Lorazepam (Ativan) 1 mg PO Q4HR PRN; Protocol PRN Reason: Agitation Stop: 08/13/17 18:14 Magnesium Hydroxide (Milk Of Magnesia) 30 ml PO BID PRN PRN Reason: Constipation Stop: 08/13/17 18:01 Trazodone HCl (Desyrel) 25 mg PO HS [facility] PRN Reason: Protocol Stop: 08/13/17 20:59 Last Admin: 01/22/18 20:51 Dose: Not Given General: demented HEENT: NC/AT, PERRLA Neck: Supple Lungs: CTAB Cardiovascular: RRR Abdomen: soft, non-tender, non-distended, positive bowel sound Neurological: disorganized Internal Medicine Assmt/Plan - Assessment Assessment: - Assessment Assessment: htn dementia psychosis hypothyroidism - Plan Plan: monitor bp will adjust bp meds accordingly continue current orders - Plan Plan: cpm Nutritional Asmnt/Malnutr-PDOC - Dietary Evaluation Malnutrition Findings (Please click <Entered> for more info): Nutritional Asmnt/Malnutrition Start: 06/21/17 13: 06 Text: Status: Complete Freq: Document 06/21/17 13:06 KIRILL (Rec: 06/21/17 13:21 KIRILLG [email or web address]) Nutritional Asmnt/Malnutrition Patient General Information Nutritional Screening Low Risk Diagnosis psychosis NOS Pertinent Medical Hx/Surgical Hx HTN, hypothyroidism, dementia, psychosis Subjective Information Pt seen sitting on bed at time of visit, confused. Per notes , PO intake 100%. Per NR note, pt refuses medications and care. Current Diet Order/ Nutrition Support [facility] soft ground Pertinent Medications vitamin D3, iron, synthroid Pertinent Labs no labs Nutritional Hx/Data Height 1.65 m Height (Calculated Centimeters) 165.1 Current Weight (lbs) 71.35 kg Weight (Calculated Kilograms) 71.4 Weight (Calculated Grams) 21991.1 [place] Body Weight 125 % [place] Body Weight 126 Body Mass Index (BMI) 26.2 Weight Status Overweight GI Symptoms GI Symptoms None Last BM 06/15 Difficult in: None Skin Integrity/Comment: skin tear on left hand first digit, cyst on right mandibular area Current %PO Good (75-100%) Estimated Nutritional Goals Calories/Kcals/Kg 25-30 Kcals Calculated 7552-1335 Protein g/k Protein Calculated 57 Fluid: ml 1425-1710ml (1ml/kcal) Nutritional Problem No current Nutrition Prob Problem N/A Malnutrition Alert Protein-Calorie Malnutrition N/A Is there a minimum of two criteria No selected? Query Text:Check all the applicable criteria. A minimum of two criteria are recommended for diagnosis of either severe or non-severe malnutrition. Intervention/Recommendation Comments 1. Continue with current diet as ordered. 2. Monitor PO intake, wt, labs and skin integrity 3. F/U as low risk in 7 days, 06/27 Expected Outcomes/Goals Expected Outcomes/Goals 1. PO intake to meet at least 75% of nutritional needs. 2. Wt stability, skin to remain intact.
--- NOTE | 2017-06-28 05:23 | Progress Notes ---
DATE: 06/27/2017 The patient seen, chart reviewed, discussed with staff. The patient remains psychotic, talking with the devil, states she only gets her medications from God, bizarre, nonsensical, aggressive, yelling, screaming, refusing her medications. She is conserved. This has been confirmed by social sciences research scientist who spoke with the conservator who noted that her court date is 07/10/2017, so we had at least that long. ASSESSMENT: Symptomatic bizarre, psychotic, delusional, talking with the devil, refusing treatment plan. Medications are reviewed. We will restart Haldol backup IM. JOB# [id number]
[2017-06-28] MEDS: Levothyroxine 0.1 Mg Tab PO SCH (06:46)
[2017-06-28] MEDS: Multivitamin w/ Minerals Tab PO SCH (09:52)
[2017-06-28] MEDS: Ferrous Sulfate 325 MG TAB PO SCH (09:52)
[2017-06-28] MEDS: Haloperidol Lactate 5 mg/mL 1mL Vial IM PRN ×2 (10:13→17:10)
--- NOTE | 2017-06-28 13:45 | Internal Medicine Prog Note ---
Internal Medicine Subjective - Subjective Service Date: 06/28/17 Patient is:: awake, verbal, interactive Per staff patient has:: no adverse event, no episodes of fall, poor oral intake , confused, tolerating meds Internal Medicine Objective - Physical Exam Vitals and I&O: Vital Signs Temp 98.8 F 06/26/17 16:20 Pulse 75 06/26/17 16:20 Resp 18 06/27/17 20:00 BP 125/70 06/26/17 16:20 Pulse Ox 97 06/26/17 16:20 Intake & Output 06/27/17 06/28/17 06/28/17 18:59 06:59 18:59 Intake Total 250 Balance 250 Intake: Oral 250 Other: # Voids 2 Active Medications: Current Medications Benazepril HCl (Lotensin) 20 mg PO DAILY [facility] Stop: 08/14/17 08:59 Last Admin: 06/28/17 09:51 Dose: Not Given Benztropine Mesylate (Cogentin) 0.5 mg PO BID [facility] Stop: 08/21/17 08:59 Last Admin: 06/28/17 09:52 Dose: Not Given Cholecalciferol (Vitamin D3) 5,000 iu PO DAILY [facility] Stop: 08/14/17 08:59 Last Admin: 06/28/17 09:52 Dose: Not Given Cilostazol (Pletal) 100 mg PO BID [facility] Stop: 08/14/17 08:59 Last Admin: 06/28/17 09:52 Dose: Not Given Ferrous Sulfate (Iron) 325 mg PO DAILY [facility] Stop: 08/14/17 08:59 Last Admin: 06/28/17 09:52 Dose: Not Given Haloperidol (Haldol) 2 mg PO BID [facility] PRN Reason: Protocol Stop: 08/21/17 08:59 Last Admin: 06/28/17 09:52 Dose: Not Given Haloperidol Lactate (Haldol) 2 mg IM BID PRN PRN Reason: Agitation Stop: 08/26/17 14:02 Last Admin: 06/28/17 10:13 Dose: 2 mg Levothyroxine Sodium (Synthroid) 0.2 mg PO QDAC [facility] Stop: 08/14/17 07:29 Last Admin: 06/28/17 06:46 Dose: Not Given Lorazepam (Ativan) 1 mg PO Q4HR PRN; Protocol PRN Reason: Agitation Stop: 08/13/17 18:14 Magnesium Hydroxide (Milk Of Magnesia) 30 ml PO BID PRN PRN Reason: Constipation Stop: 08/13/17 18:01 Trazodone HCl (Desyrel) 25 mg PO HS [facility] PRN Reason: Protocol Stop: 08/13/17 20:59 Last Admin: 06/27/17 20:19 Dose: Not Given General: demented HEENT: NC/AT, PERRLA Neck: Supple Lungs: CTAB Cardiovascular: RRR Abdomen: soft, non-tender, non-distended, positive bowel sound Neurological: disorganized Internal Medicine Assmt/Plan - Assessment Assessment: htn dementia psychosis hypothyroidism - Plan Plan: monitor bp will adjust bp meds accordingly continue current orders Nutritional Asmnt/Malnutr-PDOC - Dietary Evaluation Malnutrition Findings (Please click <Entered> for more info): Nutritional Asmnt/Malnutrition Start: 06/21/17 13: 06 Text: Status: Complete Freq: Document 06/21/17 13:06 EZE (Rec: 06/21/17 13:21 ELIGIO [email or web address]) Nutritional Asmnt/Malnutrition Patient General Information Nutritional Screening Low Risk Diagnosis psychosis NOS Pertinent Medical Hx/Surgical Hx HTN, hypothyroidism, dementia, psychosis Subjective Information Pt seen sitting on bed at time of visit, confused. Per notes , PO intake 100%. Per NR note, pt refuses medications and care. Current Diet Order/ Nutrition Support [facility] soft ground Pertinent Medications vitamin D3, iron, synthroid Pertinent Labs no labs Nutritional Hx/Data Height 5 ft 5 in Height (Calculated Centimeters) 165.1 Current Weight (lbs) 157 lb 4.8 oz Weight (Calculated Kilograms) 71.4 Weight (Calculated Grams) 10877.1 [place] Body Weight 125 % [place] Body Weight 126 Body Mass Index (BMI) 26.2 Weight Status Overweight GI Symptoms GI Symptoms None Last BM 06/15 Difficult in: None Skin Integrity/Comment: skin tear on left hand first digit, cyst on right mandibular area Current %PO Good (75-100%) Estimated Nutritional Goals Calories/Kcals/Kg 25-30 Kcals Calculated 3143-2817 Protein g/k Protein Calculated 57 Fluid: ml 1425-1710ml (1ml/kcal) Nutritional Problem No current Nutrition Prob Problem N/A Malnutrition Alert Protein-Calorie Malnutrition N/A Is there a minimum of two criteria No selected? Query Text:Check all the applicable criteria. A minimum of two criteria are recommended for diagnosis of either severe or non-severe malnutrition. Intervention/Recommendation Comments 1. Continue with current diet as ordered. 2. Monitor PO intake, wt, labs and skin integrity 3. F/U as low risk in 7 days, 06/27 Expected Outcomes/Goals Expected Outcomes/Goals 1. PO intake to meet at least 75% of nutritional needs. 2. Wt stability, skin to remain intact.
[2017-06-29] MEDS: Levothyroxine 0.1 Mg Tab PO SCH (06:48)
[2017-06-29] MEDS: Ferrous Sulfate 325 MG TAB PO SCH (08:53)
[2017-06-29] MEDS: Multivitamin w/ Minerals Tab PO SCH (08:53)
--- NOTE | 2017-06-29 15:22 | Internal Medicine Prog Note ---
Internal Medicine Subjective - Subjective Service Date: 06/29/17 Patient seen and examined:: with staff Patient is:: awake, verbal, interactive Per staff patient has:: no adverse event, no episodes of fall, poor oral intake , confused, tolerating meds Internal Medicine Objective - Physical Exam Vitals and I&O: Vital Signs Temp 97.2 F 06/28/17 14:00 Pulse 69 06/29/17 08:54 Resp 18 06/28/17 14:00 BP 142/76 06/29/17 08:54 Pulse Ox 96 06/28/17 14:00 Intake & Output 06/28/17 06/29/17 06/29/17 18:59 06:59 18:59 Intake Total 1200 Balance 1200 Intake: Oral 1200 Other: # Bowel Movements 1 Active Medications: Current Medications Benazepril HCl (Lotensin) 20 mg PO DAILY [facility] Stop: 08/14/17 08:59 Last Admin: 06/29/17 08:54 Dose: Not Given Benztropine Mesylate (Cogentin) 0.5 mg PO BID [facility] Stop: 08/21/17 08:59 Last Admin: 06/29/17 08:52 Dose: Not Given Cholecalciferol (Vitamin D3) 5,000 iu PO DAILY [facility] Stop: 08/14/17 08:59 Last Admin: 06/29/17 08:55 Dose: Not Given Cilostazol (Pletal) 100 mg PO BID [facility] Stop: 08/14/17 08:59 Last Admin: 06/29/17 10:00 Dose: Not Given Ferrous Sulfate (Iron) 325 mg PO DAILY [facility] Stop: 08/14/17 08:59 Last Admin: 06/29/17 08:53 Dose: Not Given Haloperidol (Haldol) [address] [facility] PRN Reason: Protocol Stop: 08/21/17 08:59 Last Admin: 06/29/17 08:54 Dose: Not Given Haloperidol Decanoate (Haldol Dec) [address] [facility] PRN Reason: Protocol Stop: 08/28/17 08:59 Last Admin: 06/29/17 10:02 Dose: 25 mg Levothyroxine Sodium (Synthroid) 0.2 mg PO QDAC [facility] Stop: 08/14/17 07:29 Last Admin: 06/29/17 06:48 Dose: 0.2 mg Lorazepam (Ativan) 1 mg PO Q4HR PRN; Protocol PRN Reason: Agitation Stop: 08/13/17 18:14 Magnesium Hydroxide (Milk Of Magnesia) 30 ml PO BID PRN PRN Reason: Constipation Stop: 08/13/17 18:01 Trazodone HCl (Desyrel) 25 mg PO HS [facility] PRN Reason: Protocol Stop: 08/13/17 20:59 Last Admin: 06/28/17 21:51 Dose: 25 mg General: demented HEENT: NC/AT, PERRLA Neck: Supple Lungs: CTAB Cardiovascular: RRR Abdomen: soft, non-tender, non-distended, positive bowel sound Neurological: disorganized Internal Medicine Assmt/Plan - Assessment Assessment: htn dementia psychosis hypothyroidism - Plan Plan: monitor bp will adjust bp meds accordingly continue current orders Nutritional Asmnt/Malnutr-PDOC - Dietary Evaluation Malnutrition Findings (Please click <Entered> for more info): Nutritional Asmnt/Malnutrition Start: 06/21/17 13: 06 Text: Status: Complete Freq: Document 06/21/17 13:06 KIRILL (Rec: 06/21/17 13:[email or web address] Nutritional Asmnt/Malnutrition Patient General Information Nutritional Screening Low Risk Diagnosis psychosis NOS Pertinent Medical Hx/Surgical Hx HTN, hypothyroidism, dementia, psychosis Subjective Information Pt seen sitting on bed at time of visit, confused. Per notes , PO intake 100%. Per NR note, pt refuses medications and care. Current Diet Order/ Nutrition Support [facility] soft ground Pertinent Medications vitamin D3, iron, synthroid Pertinent Labs no labs Nutritional Hx/Data Height 5 ft 5 in Height (Calculated Centimeters) 165.1 Current Weight (lbs) 157 lb 4.8 oz Weight (Calculated Kilograms) 71.4 Weight (Calculated Grams) 16938.1 [place] Body Weight 125 % [place] Body Weight 126 Body Mass Index (BMI) 26.2 Weight Status Overweight GI Symptoms GI Symptoms None Last BM 06/15 Difficult in: None Skin Integrity/Comment: skin tear on left hand first digit, cyst on right mandibular area Current %PO Good (75-100%) Estimated Nutritional Goals Calories/Kcals/Kg 25-30 Kcals Calculated 9370-9712 Protein g/k Protein Calculated 57 Fluid: ml 1425-1710ml (1ml/kcal) Nutritional Problem No current Nutrition Prob Problem N/A Malnutrition Alert Protein-Calorie Malnutrition N/A Is there a minimum of two criteria No selected? Query Text:Check all the applicable criteria. A minimum of two criteria are recommended for diagnosis of either severe or non-severe malnutrition. Intervention/Recommendation Comments 1. Continue with current diet as ordered. 2. Monitor PO intake, wt, labs and skin integrity 3. F/U as low risk in 7 days, 06/27 Expected Outcomes/Goals Expected Outcomes/Goals 1. PO intake to meet at least 75% of nutritional needs. 2. Wt stability, skin to remain intact.
[2017-06-30] MEDS: Levothyroxine 0.1 Mg Tab PO SCH (06:54)
--- NOTE | 2017-06-30 07:30 | Progress Notes ---
DATE: 06/29/2017 SUBJECTIVE: The patient remains psychotic, talking about the devil, refusing medications, still aggressive, disrobing, bizarre, currently conserved, gravely disabled. Medications reviewed. No overt side effects. Sleeping well, eating well. Somewhat calmer this morning. ASSESSMENT: The patient remains symptomatic, still psychotic, delusional. PLAN: We will continue to monitor and initiate Haldol. [facility]# [id number]
[2017-06-30] MEDS: Ferrous Sulfate 325 MG TAB PO SCH (09:51)
[2017-06-30] MEDS: Multivitamin w/ Minerals Tab PO SCH (09:52)
--- NOTE | 2017-06-30 13:24 | Internal Medicine Prog Note ---
Internal Medicine Subjective - Subjective Service Date: 06/30/17 Patient is:: awake, verbal, interactive Per staff patient has:: no adverse event, no episodes of fall, poor oral intake , confused, tolerating meds Internal Medicine Objective - Physical Exam Vitals and I&O: Vital Signs Temp 96.8 F 06/30/17 06:00 Pulse 66 06/30/17 06:00 Resp 18 06/30/17 06:00 BP 140/80 06/30/17 06:00 Pulse Ox 95 06/30/17 06:00 Intake & Output 06/29/17 06/30/17 06/30/17 18:59 06:59 18:59 Intake Total 1200 500 Balance 1200 500 Intake: Oral 1200 500 Other: # Voids 2 # Bowel Movements 1 0 Active Medications: Current Medications Benazepril HCl (Lotensin) 20 mg PO DAILY [facility] Stop: 08/14/17 08:59 Last Admin: 06/30/17 09:51 Dose: Not Given Benztropine Mesylate (Cogentin) 0.5 mg PO BID [facility] Stop: 08/21/17 08:59 Last Admin: 06/30/17 09:51 Dose: Not Given Cholecalciferol (Vitamin D3) 5,000 iu PO DAILY [facility] Stop: 08/14/17 08:59 Last Admin: 06/30/17 09:51 Dose: Not Given Cilostazol (Pletal) 100 mg PO BID [facility] Stop: 08/14/17 08:59 Last Admin: 06/30/17 09:51 Dose: Not Given Ferrous Sulfate (Iron) 325 mg PO DAILY [facility] Stop: 08/14/17 08:59 Last Admin: 06/30/17 09:51 Dose: Not Given Haloperidol (Haldol) 2 mg PO BID [facility] PRN Reason: Protocol Stop: 08/21/17 08:59 Last Admin: 06/30/17 09:52 Dose: Not Given Haloperidol Decanoate (Haldol Dec) 25 mg IM QMONTH [facility] PRN Reason: Protocol Stop: 08/28/17 08:59 Last Admin: 06/29/17 10:02 Dose: 25 mg Levothyroxine Sodium (Synthroid) 0.2 mg PO QDAC [facility] Stop: 08/14/17 07:29 Last Admin: 06/30/17 06:54 Dose: 0.2 mg Lorazepam (Ativan) 1 mg PO Q4HR PRN; Protocol PRN Reason: Agitation Stop: 08/13/17 18:14 Magnesium Hydroxide (Milk Of Magnesia) 30 ml PO BID PRN PRN Reason: Constipation Stop: 08/13/17 18:01 Trazodone HCl (Desyrel) 25 mg PO HS [facility] PRN Reason: Protocol Stop: 08/13/17 20:59 Last Admin: 06/29/17 20:57 Dose: 25 mg General: demented HEENT: NC/AT, PERRLA Neck: Supple Lungs: CTAB Cardiovascular: RRR Abdomen: soft, non-tender, non-distended, positive bowel sound Neurological: disorganized Internal Medicine Assmt/Plan - Assessment Assessment: htn dementia psychosis hypothyroidism - Plan Plan: monitor bp will adjust bp meds accordingly continue current orders Nutritional Asmnt/Malnutr-PDOC - Dietary Evaluation Malnutrition Findings (Please click <Entered> for more info): Nutritional Asmnt/Malnutrition Start: 06/21/17 13: 06 Text: Status: Complete Freq: Document 06/21/17 13:06 KIRILL (Rec: 06/21/17 13:21 KIRILL [email or web address]) Nutritional Asmnt/Malnutrition Patient General Information Nutritional Screening Low Risk Diagnosis psychosis NOS Pertinent Medical Hx/Surgical Hx HTN, hypothyroidism, dementia, psychosis Subjective Information Pt seen sitting on bed at time of visit, confused. Per notes , PO intake 100%. Per NR note, pt refuses medications and care. Current Diet Order/ Nutrition Support [facility] soft ground Pertinent Medications vitamin D3, iron, synthroid Pertinent Labs no labs Nutritional Hx/Data Height 5 ft 5 in Height (Calculated Centimeters) 165.1 Current Weight (lbs) 157 lb 4.8 oz Weight (Calculated Kilograms) 71.4 Weight (Calculated Grams) 46974.1 [place] Body Weight 125 % [place] Body Weight 126 Body Mass Index (BMI) 26.2 Weight Status Overweight GI Symptoms GI Symptoms None Last BM 06/15 Difficult in: None Skin Integrity/Comment: skin tear on left hand first digit, cyst on right mandibular area Current %PO Good (75-100%) Estimated Nutritional Goals Calories/Kcals/Kg 25-30 Kcals Calculated 9221-8137 Protein g/k Protein Calculated 57 Fluid: ml 1425-1710ml (1ml/kcal) Nutritional Problem No current Nutrition Prob Problem N/A Malnutrition Alert Protein-Calorie Malnutrition N/A Is there a minimum of two criteria No selected? Query Text:Check all the applicable criteria. A minimum of two criteria are recommended for diagnosis of either severe or non-severe malnutrition. Intervention/Recommendation Comments 1. Continue with current diet as ordered. 2. Monitor PO intake, wt, labs and skin integrity 3. F/U as low risk in 7 days, 06/27 Expected Outcomes/Goals Expected Outcomes/Goals 1. PO intake to meet at least 75% of nutritional needs. 2. Wt stability, skin to remain intact.
--- NOTE | 2017-06-30 22:32 | Progress Notes ---
DATE: 06/30/[address] Snyder. Case was discussed with staff of the patient, reviewed records. The patient continues to be confused, continues to be uncooperative. Continues to have poor insight. Continues to be unable to participate in meaningful conversation or make safe plan for self-care. The patient is conserved and she is currently on Haldol Decanoate, oral Haldol 2 mg twice a day to be given IM if refuses p.o. Continues to have poor insight, unpredictable, impulsive. She is not on any IM medication to be given. At some point, they were concerned that the people do not have the [employer] has left or they do not have the papers for the medical [employer], so she is still ____ and psychotic, needing further stabilization. I will continue the patient in group therapy, milieu therapy and adjust medications as needed. JOB# [id number]
[2017-07-01] MEDS: Levothyroxine 0.1 Mg Tab PO SCH (06:49)
[2017-07-01] MEDS: Ferrous Sulfate 325 MG TAB PO SCH (08:27)
[2017-07-01] MEDS: Multivitamin w/ Minerals Tab PO SCH (08:27)
--- NOTE | 2017-07-01 10:40 | Internal Medicine Prog Note ---
Internal Medicine Subjective - Subjective Patient seen and examined:: with staff, chart reviewed Patient is:: awake, verbal, interactive Per staff patient has:: no adverse event, no episodes of fall, poor oral intake , confused, tolerating meds Internal Medicine Objective - Physical Exam Vitals and I&O: Vital Signs Temp 97.2 F 06/30/17 16:14 Pulse 73 06/30/17 16:14 Resp 19 06/30/17 16:14 BP 152/86 06/30/17 16:14 Pulse Ox 96 06/30/17 16:14 Intake & Output 06/30/17 07/01/17 07/01/17 18:59 06:59 18:59 Intake Total 1200 Balance 1200 Intake: Oral 1200 Other: # Voids 3 # Bowel Movements 1 Stool Characteristics Brown Active Medications: Current Medications Benazepril HCl (Lotensin) 20 mg PO DAILY [facility]A Stop: 08/14/17 08:59 Last Admin: 07/01/17 08:26 Dose: Not Given Benztropine Mesylate (Cogentin) 0.5 mg PO BID [facility]ARTA Stop: 08/21/17 08:59 Last Admin: 07/01/17 08:26 Dose: Not Given Cholecalciferol (Vitamin D3) 5,000 iu PO DAILY [facility] Stop: 08/14/17 08:59 Last Admin: 07/01/17 08:26 Dose: Not Given Cilostazol (Pletal) 100 mg PO BID [facility]ARTA Stop: 08/14/17 08:59 Last Admin: 07/01/17 08:26 Dose: Not Given Ferrous Sulfate (Iron) 325 mg PO DAILY [facility]A Stop: 08/14/17 08:59 Last Admin: 07/01/17 08:27 Dose: Not Given Haloperidol (Haldol) 2 mg PO BID [facility] PRN Reason: Protocol Stop: 08/21/17 08:59 Last Admin: 07/01/17 08:27 Dose: Not Given Haloperidol Decanoate (Haldol Dec) 25 mg IM QMONTH [facility] PRN Reason: Protocol Stop: 08/28/17 08:59 Last Admin: 06/29/17 10:02 Dose: 25 mg Levothyroxine Sodium (Synthroid) 0.2 mg PO QDAC [facility] Stop: 08/14/17 07:29 Last Admin: 07/01/17 06:49 Dose: Not Given Lorazepam (Ativan) 1 mg PO Q4HR PRN; Protocol PRN Reason: Agitation Stop: 08/13/17 18:14 Magnesium Hydroxide (Milk Of Magnesia) 30 ml PO BID PRN PRN Reason: Constipation Stop: 08/13/17 18:01 Trazodone HCl (Desyrel) 25 mg PO HS [facility]A PRN Reason: Protocol Stop: 08/13/17 20:59 Last Admin: 06/30/17 21:16 Dose: 25 mg General: demented HEENT: NC/AT, PERRLA Neck: Supple Lungs: CTAB Cardiovascular: RRR Abdomen: soft, non-tender, non-distended, positive bowel sound Neurological: disorganized Internal Medicine Assmt/Plan - Assessment Assessment: - Assessment Assessment: htn dementia psychosis hypothyroidism - Plan Plan: monitor bp will adjust bp meds accordingly continue current orders - Plan Plan: cpm Nutritional Asmnt/Malnutr-PDOC - Dietary Evaluation Malnutrition Findings (Please click <Entered> for more info): Nutritional Asmnt/Malnutrition Start: 06/21/17 13: 06 Text: Status: Complete Freq: Document 06/21/17 13:06 HEN (Rec: 06/21/17 13:21 LCHEN [email or web address]) Nutritional Asmnt/Malnutrition Patient General Information Nutritional Screening Low Risk Diagnosis psychosis NOS Pertinent Medical Hx/Surgical Hx HTN, hypothyroidism, dementia, psychosis Subjective Information Pt seen sitting on bed at time of visit, confused. Per notes , PO intake 100%. Per NR note, pt refuses medications and care. Current Diet Order/ Nutrition Support [facility] soft ground Pertinent Medications vitamin D3, iron, synthroid Pertinent Labs no labs Nutritional Hx/Data Height 1.65 m Height (Calculated Centimeters) 165.1 Current Weight (lbs) 71.35 kg Weight (Calculated Kilograms) 71.4 Weight (Calculated Grams) 06209.1 [place] Body Weight 125 % [place] Body Weight 126 Body Mass Index (BMI) 26.2 Weight Status Overweight GI Symptoms GI Symptoms None Last BM 06/15 Difficult in: None Skin Integrity/Comment: skin tear on left hand first digit, cyst on right mandibular area Current %PO Good (75-100%) Estimated Nutritional Goals Calories/Kcals/Kg 25-30 Kcals Calculated 8793-3271 Protein g/k Protein Calculated 57 Fluid: ml 1425-1710ml (1ml/kcal) Nutritional Problem No current Nutrition Prob Problem N/A Malnutrition Alert Protein-Calorie Malnutrition N/A Is there a minimum of two criteria No selected? Query Text:Check all the applicable criteria. A minimum of two criteria are recommended for diagnosis of either severe or non-severe malnutrition. Intervention/Recommendation Comments 1. Continue with current diet as ordered. 2. Monitor PO intake, wt, labs and skin integrity 3. F/U as low risk in 7 days, 06/27 Expected Outcomes/Goals Expected Outcomes/Goals 1. PO intake to meet at least 75% of nutritional needs. 2. Wt stability, skin to remain intact.
[2017-07-02] MEDS: Levothyroxine 0.1 Mg Tab PO SCH (06:38)
[2017-07-02] MEDS: Ferrous Sulfate 325 MG TAB PO SCH (08:41)
[2017-07-02] MEDS: Multivitamin w/ Minerals Tab PO SCH (08:45)
--- NOTE | 2017-07-02 12:11 | Internal Medicine Prog Note ---
Internal Medicine Subjective - Subjective Patient seen and examined:: with staff, chart reviewed Patient is:: awake, verbal, interactive Per staff patient has:: no adverse event, no episodes of fall, poor oral intake , confused, tolerating meds Internal Medicine Objective - Physical Exam Vitals and I&O: Vital Signs Temp 97.4 F 07/01/17 14:00 Pulse 72 07/01/17 14:00 Resp 18 07/01/17 14:00 BP 146/87 07/01/17 14:00 Pulse Ox 96 07/01/17 14:00 Intake & Output 07/01/17 07/02/17 07/02/17 18:59 06:59 18:59 Intake Total 2400 Balance 2400 Intake: Oral 2400 Other: # Voids 5 # Bowel Movements 0 Stool Characteristics Brown Soft Soft Active Medications: Current Medications Benazepril HCl (Lotensin) 20 mg PO DAILY [facility] Stop: 08/14/17 08:59 Last Admin: 07/02/17 08:44 Dose: Not Given Benztropine Mesylate (Cogentin) 0.5 mg PO BID [facility] Stop: 08/21/17 08:59 Last Admin: 07/02/17 08:44 Dose: Not Given Cholecalciferol (Vitamin D3) 5,000 iu PO DAILY [facility] Stop: 08/14/17 08:59 Last Admin: 07/02/17 08:44 Dose: Not Given Cilostazol (Pletal) 100 mg PO BID [facility] Stop: 08/14/17 08:59 Last Admin: 07/02/17 08:44 Dose: Not Given Donepezil HCl (Aricept) 5 mg PO DAILY [facility] Stop: 09/01/17 08:59 Ferrous Sulfate (Iron) 325 mg PO DAILY [facility] Stop: 08/14/17 08:59 Last Admin: 07/02/17 08:41 Dose: Not Given Haloperidol (Haldol) 2 mg PO BID [facility] PRN Reason: Protocol Stop: 08/21/17 08:59 Last Admin: 07/02/17 08:45 Dose: Not Given Haloperidol Decanoate (Haldol Dec) 25 mg IM QMONTH [facility] PRN Reason: Protocol Stop: 08/28/17 08:59 Last Admin: 06/29/17 10:02 Dose: 25 mg Levothyroxine Sodium (Synthroid) 0.2 mg PO QDAC [facility] Stop: 08/14/17 07:29 Last Admin: 07/02/17 06:38 Dose: Not Given Lorazepam (Ativan) 1 mg PO Q4HR PRN; Protocol PRN Reason: Agitation Stop: 08/13/17 18:14 Last Admin: 07/02/17 09:07 Dose: 1 mg Magnesium Hydroxide (Milk Of Magnesia) 30 ml PO BID PRN PRN Reason: Constipation Stop: 08/13/17 18:01 Trazodone HCl (Desyrel) 25 mg PO HS [facility] PRN Reason: Protocol Stop: 08/13/17 20:59 Last Admin: 07/01/17 22:09 Dose: Not Given General: demented HEENT: NC/AT, PERRLA Neck: Supple Lungs: CTAB Cardiovascular: RRR Abdomen: soft, non-tender, non-distended, positive bowel sound Neurological: disorganized Internal Medicine Assmt/Plan - Assessment Assessment: - Assessment Assessment: htn dementia psychosis hypothyroidism - Plan Plan: monitor bp will adjust bp meds accordingly continue current orders - Plan Plan: cpm Nutritional Asmnt/Malnutr-PDOC - Dietary Evaluation Malnutrition Findings (Please click <Entered> for more info): Nutritional Asmnt/Malnutrition Start: 06/21/17 13: 06 Text: Status: Complete Freq: Document 06/21/17 13:06 LCKIRILLG (Rec: 06/21/17 13:21 LCKIRILLG [id number]) Nutritional Asmnt/Malnutrition Patient General Information Nutritional Screening Low Risk Diagnosis psychosis NOS Pertinent Medical Hx/Surgical Hx HTN, hypothyroidism, dementia, psychosis Subjective Information Pt seen sitting on bed at time of visit, confused. Per notes , PO intake 100%. Per NR note, pt refuses medications and care. Current Diet Order/ Nutrition Support [facility] soft ground Pertinent Medications vitamin D3, iron, synthroid Pertinent Labs no labs Nutritional Hx/Data Height 1.65 m Height (Calculated Centimeters) 165.1 Current Weight (lbs) 71.35 kg Weight (Calculated Kilograms) 71.4 Weight (Calculated Grams) 86172.1 [place] Body Weight 125 % [place] Body Weight 126 Body Mass Index (BMI) 26.2 Weight Status Overweight GI Symptoms GI Symptoms None Last BM 06/15 Difficult in: None Skin Integrity/Comment: skin tear on left hand first digit, cyst on right mandibular area Current %PO Good (75-100%) Estimated Nutritional Goals Calories/Kcals/Kg 25-30 Kcals Calculated 5735-8123 Protein g/k Protein Calculated 57 Fluid: ml 1425-1710ml (1ml/kcal) Nutritional Problem No current Nutrition Prob Problem N/A Malnutrition Alert Protein-Calorie Malnutrition N/A Is there a minimum of two criteria No selected? Query Text:Check all the applicable criteria. A minimum of two criteria are recommended for diagnosis of either severe or non-severe malnutrition. Intervention/Recommendation Comments 1. Continue with current diet as ordered. 2. Monitor PO intake, wt, labs and skin integrity 3. F/U as low risk in 7 days, 06/27 Expected Outcomes/Goals Expected Outcomes/Goals 1. PO intake to meet at least 75% of nutritional needs. 2. Wt stability, skin to remain intact.
[2017-07-03] MEDS: Levothyroxine 0.1 Mg Tab PO SCH (06:47)
--- NOTE | 2017-07-03 08:04 | Progress Notes ---
DATE: This is Dr. Lam, covering for Dr. Snyder. SUBJECTIVE: The patient was seen and evaluated. The patient's chart reviewed. Today on [id number] evaluation, the patient continues to be extremely paranoid, suspicious, and almost in aggressive manner and stares intently at the psychiatrist when approached. MENTAL STATUS EXAMINATION: Responding poor insight, judgment, impulse control, delusional, suspicious. ASSESSMENT AND PLAN: The patient is an 81-year-old female with severe dementia with behavior disturbance, severe psychotic symptoms, unable to formulate safe plan outside . She continues to perseverate about her paranoia. We will continue with Haldol 2 mg p.o. b.i.d. and haloperidol. Will augment with Aricept to alleviate also the underlying anxiety, it is associated with severe dementia. [facility]# [id number] MTDD
[2017-07-03] MEDS: Ferrous Sulfate 325 MG TAB PO SCH (08:09)
[2017-07-03] MEDS: Multivitamin w/ Minerals Tab PO SCH (08:09)
--- NOTE | 2017-07-03 13:36 | Internal Medicine Prog Note ---
Internal Medicine Subjective - Subjective Service Date: 07/03/17 Patient is:: awake, verbal, interactive Per staff patient has:: no adverse event, no episodes of fall, poor oral intake , confused, tolerating meds Internal Medicine Objective - Physical Exam Vitals and I&O: Vital Signs Temp 0 F 07/03/17 05:48 Pulse 88 07/03/17 08:08 Resp 18 07/02/17 17:38 BP 135/81 07/03/17 08:08 Pulse Ox 97 07/02/17 17:38 Intake & Output 07/02/17 07/03/17 07/03/17 18:59 06:59 18:59 Intake Total 800 60 Balance 800 60 Intake: Oral 800 60 Other: # Voids 2 3 # Bowel Movements 1 1 Stool Characteristics Soft Soft Active Medications: Current Medications Benazepril HCl (Lotensin) 20 mg PO DAILY [facility] Stop: 08/14/17 08:59 Last Admin: 07/03/17 08:08 Dose: Not Given Benztropine Mesylate (Cogentin) 0.5 mg PO BID [facility] Stop: 08/21/17 08:59 Last Admin: 07/03/17 08:08 Dose: Not Given Cholecalciferol (Vitamin D3) 5,000 iu PO DAILY [facility] Stop: 08/14/17 08:59 Last Admin: 07/03/17 08:09 Dose: Not Given Cilostazol (Pletal) 100 mg PO BID [facility] Stop: 08/14/17 08:59 Last Admin: 07/03/17 08:08 Dose: Not Given Donepezil HCl (Aricept) 5 mg PO DAILY [facility] Stop: 09/01/17 08:59 Last Admin: 07/03/17 08:09 Dose: Not Given Ferrous Sulfate (Iron) 325 mg PO DAILY [facility] Stop: 08/14/17 08:59 Last Admin: 07/03/17 08:09 Dose: Not Given Haloperidol (Haldol) 2 mg PO BID [facility] PRN Reason: Protocol Stop: 08/21/17 08:59 Last Admin: 07/03/17 08:09 Dose: Not Given Haloperidol Decanoate (Haldol Dec) 25 mg IM QMONTH [facility] PRN Reason: Protocol Stop: 08/28/17 08:59 Last Admin: 06/29/17 10:02 Dose: 25 mg Levothyroxine Sodium (Synthroid) 0.2 mg PO QDAC [facility] Stop: 08/14/17 07:29 Last Admin: 07/03/17 06:47 Dose: Not Given Lorazepam (Ativan) 1 mg PO Q4HR PRN; Protocol PRN Reason: Agitation Stop: 08/13/17 18:14 Last Admin: 07/02/17 09:07 Dose: 1 mg Magnesium Hydroxide (Milk Of Magnesia) 30 ml PO BID PRN PRN Reason: Constipation Stop: 08/13/17 18:01 Trazodone HCl (Desyrel) 25 mg PO HS [facility] PRN Reason: Protocol Stop: 08/13/17 20:59 Last Admin: 07/02/17 21:28 Dose: Not Given General: demented HEENT: NC/AT, PERRLA Neck: Supple Lungs: CTAB Cardiovascular: RRR Abdomen: soft, non-tender, non-distended, positive bowel sound Neurological: disorganized Internal Medicine Assmt/Plan - Assessment Assessment: htn dementia psychosis hypothyroidism - Plan Plan: monitor bp will adjust bp meds accordingly continue current orders Nutritional Asmnt/Malnutr-PDOC - Dietary Evaluation Malnutrition Findings (Please click <Entered> for more info): Nutritional Asmnt/Malnutrition Start: 06/21/17 13: 06 Text: Status: Complete Freq: Document 06/21/17 13:06 EZE (Rec: 06/21/17 13:21 LCKIRILLG [id number]) Nutritional Asmnt/Malnutrition Patient General Information Nutritional Screening Low Risk Diagnosis psychosis NOS Pertinent Medical Hx/Surgical Hx HTN, hypothyroidism, dementia, psychosis Subjective Information Pt seen sitting on bed at time of visit, confused. Per notes , PO intake 100%. Per NR note, pt refuses medications and care. Current Diet Order/ Nutrition Support [facility] soft ground Pertinent Medications vitamin D3, iron, synthroid Pertinent Labs no labs Nutritional Hx/Data Height 5 ft 5 in Height (Calculated Centimeters) 165.1 Current Weight (lbs) 157 lb 4.8 oz Weight (Calculated Kilograms) 71.4 Weight (Calculated Grams) 74051.1 [place] Body Weight 125 % [place] Body Weight 126 Body Mass Index (BMI) 26.2 Weight Status Overweight GI Symptoms GI Symptoms None Last BM 06/15 Difficult in: None Skin Integrity/Comment: skin tear on left hand first digit, cyst on right mandibular area Current %PO Good (75-100%) Estimated Nutritional Goals Calories/Kcals/Kg 25-30 Kcals Calculated 9637-5783 Protein g/k Protein Calculated 57 Fluid: ml 1425-1710ml (1ml/kcal) Nutritional Problem No current Nutrition Prob Problem N/A Malnutrition Alert Protein-Calorie Malnutrition N/A Is there a minimum of two criteria No selected? Query Text:Check all the applicable criteria. A minimum of two criteria are recommended for diagnosis of either severe or non-severe malnutrition. Intervention/Recommendation Comments 1. Continue with current diet as ordered. 2. Monitor PO intake, wt, labs and skin integrity 3. F/U as low risk in 7 days, 06/27 Expected Outcomes/Goals Expected Outcomes/Goals 1. PO intake to meet at least 75% of nutritional needs. 2. Wt stability, skin to remain intact.
--- NOTE | 2017-07-03 14:17 | Progress Notes ---
DATE: SUBJECTIVE: The patient was seen and evaluated. The patient's chart reviewed. Overnight, nursing staff reported the patient continues to be mostly withdrawn and irritable. Today on qbrt-ty-szzm evaluation, the patient presented extremely suspicious and paranoid. She reports without asking "who are you, why are you asking my ____." MENTAL STATUS EXAMINATION: Paranoid, delusional. ASSESSMENT AND PLAN: The patient is an 81-year-old female who presents very still paranoid, suspicious. We will continue with primary psychiatrist's treatment plan and goals and Haldol at 25 mg IM q. monthly and currently augmentation of 2 mg p.o. b.i.d. to target the patient's still residual suspicious and paranoid state. [facility]# [id number]
--- NOTE | 2017-07-04 05:44 | Progress Notes ---
DATE: The patient was seen and evaluated. The patient's chart reviewed. COVERING FOR: Dr. Snyder. Overnight nursing staff reported the patient mostly been isolative, withdrawn in her room. Today on puzi-up-werp evaluation, the patient becomes easily paranoid, suspicious, starts yelling, "you are not my doctor, I only accept Dr. Becerra, get away, get away" and very frightened. MENTAL STATUS EXAMINATION: Slightly delusional. ASSESSMENT AND PLAN: The patient is an 81-year-old female who apparently is still very suspicious and paranoid, needing redirection. We will continue monitoring, evaluating and will continue with the Haldol 2 mg p.o. b.i.d. as it was recently reinitiated including the Haldol. They continue to target the patient's history of noncompliance and history of severe decompensated outside structured environment and also off medication. JOB# [id number] MTDD
[2017-07-04] MEDS: Levothyroxine 0.1 Mg Tab PO SCH (06:52)
[2017-07-04] MEDS: Ferrous Sulfate 325 MG TAB PO SCH (08:38)
[2017-07-04] MEDS: Multivitamin w/ Minerals Tab PO SCH (08:39)
--- NOTE | 2017-07-04 15:40 | Internal Medicine Prog Note ---
Internal Medicine Subjective - Subjective Service Date: 07/04/17 Patient seen and examined:: with staff Patient is:: awake, verbal, interactive Per staff patient has:: no adverse event, no episodes of fall, poor oral intake , confused, tolerating meds Internal Medicine Objective - Physical Exam Vitals and I&O: Vital Signs Temp 0 F 07/03/17 05:48 Pulse 88 07/03/17 08:08 Resp 18 07/02/17 17:38 BP 135/81 07/03/17 08:08 Pulse Ox 97 07/02/17 17:38 Intake & Output 07/03/17 07/04/17 07/04/17 18:59 06:59 18:59 Intake Total 2400 120 Balance 2400 120 Intake: Oral 2400 120 Other: # Voids 3 1 # Bowel Movements 1 Stool Characteristics Soft Active Medications: Current Medications Benazepril HCl (Lotensin) 20 mg PO DAILY [facility] Stop: 08/14/17 08:59 Last Admin: 07/04/17 08:38 Dose: Not Given Benztropine Mesylate (Cogentin) 0.5 mg PO BID [facility] Stop: 08/21/17 08:59 Last Admin: 07/04/17 08:38 Dose: Not Given Cholecalciferol (Vitamin D3) 5,000 iu PO DAILY [facility] Stop: 08/14/17 08:59 Last Admin: 07/04/17 08:38 Dose: Not Given Cilostazol (Pletal) 100 mg PO BID [facility] Stop: 08/14/17 08:59 Last Admin: 07/04/17 08:38 Dose: Not Given Donepezil HCl (Aricept) 5 mg PO DAILY [facility] Stop: 09/01/17 08:59 Last Admin: 07/04/17 08:38 Dose: Not Given Ferrous Sulfate (Iron) 325 mg PO DAILY [facility] Stop: 08/14/17 08:59 Last Admin: 07/04/17 08:38 Dose: Not Given Haloperidol (Haldol) 2 mg PO BID [facility] PRN Reason: Protocol Stop: 08/21/17 08:59 Last Admin: 07/04/17 08:38 Dose: Not Given Haloperidol Decanoate (Haldol Dec) 25 mg IM QMONTH [facility] PRN Reason: Protocol Stop: 08/28/17 08:59 Last Admin: 06/29/17 10:02 Dose: 25 mg Levothyroxine Sodium (Synthroid) 0.2 mg PO QDAC [facility] Stop: 08/14/17 07:29 Last Admin: 07/04/17 06:52 Dose: Not Given Lorazepam (Ativan) 1 mg PO Q4HR PRN; Protocol PRN Reason: Agitation Stop: 08/13/17 18:14 Last Admin: 07/02/17 09:07 Dose: 1 mg Magnesium Hydroxide (Milk Of Magnesia) 30 ml PO BID PRN PRN Reason: Constipation Stop: 08/13/17 18:01 Trazodone HCl (Desyrel) 25 mg PO HS [facility] PRN Reason: Protocol Stop: 08/13/17 20:59 Last Admin: 07/03/17 20:57 Dose: Not Given General: demented HEENT: NC/AT, PERRLA Neck: Supple Lungs: CTAB Cardiovascular: RRR Abdomen: soft, non-tender, non-distended, positive bowel sound Neurological: disorganized Internal Medicine Assmt/Plan - Assessment Assessment: htn dementia psychosis hypothyroidism - Plan Plan: monitor bp will adjust bp meds accordingly continue current orders Nutritional Asmnt/Malnutr-PDOC - Dietary Evaluation Malnutrition Findings (Please click <Entered> for more info): Nutritional Asmnt/Malnutrition Start: 06/21/17 13: 06 Text: Status: Complete Freq: Document 06/21/17 13:06 KIRILL (Rec: 06/21/17 13:21 KIRILL [email or web address]) Nutritional Asmnt/Malnutrition Patient General Information Nutritional Screening Low Risk Diagnosis psychosis NOS Pertinent Medical Hx/Surgical Hx HTN, hypothyroidism, dementia, psychosis Subjective Information Pt seen sitting on bed at time of visit, confused. Per notes , PO intake 100%. Per NR note, pt refuses medications and care. Current Diet Order/ Nutrition Support [facility] soft ground Pertinent Medications vitamin D3, iron, synthroid Pertinent Labs no labs Nutritional Hx/Data Height 5 ft 5 in Height (Calculated Centimeters) 165.1 Current Weight (lbs) 157 lb 4.8 oz Weight (Calculated Kilograms) 71.4 Weight (Calculated Grams) 67031.1 [place] Body Weight 125 % [place] Body Weight 126 Body Mass Index (BMI) 26.2 Weight Status Overweight GI Symptoms GI Symptoms None Last BM 06/15 Difficult in: None Skin Integrity/Comment: skin tear on left hand first digit, cyst on right mandibular area Current %PO Good (75-100%) Estimated Nutritional Goals Calories/Kcals/Kg 25-30 Kcals Calculated 9636-6932 Protein g/k Protein Calculated 57 Fluid: ml 1425-1710ml (1ml/kcal) Nutritional Problem No current Nutrition Prob Problem N/A Malnutrition Alert Protein-Calorie Malnutrition N/A Is there a minimum of two criteria No selected? Query Text:Check all the applicable criteria. A minimum of two criteria are recommended for diagnosis of either severe or non-severe malnutrition. Intervention/Recommendation Comments 1. Continue with current diet as ordered. 2. Monitor PO intake, wt, labs and skin integrity 3. F/U as low risk in 7 days, 06/27 Expected Outcomes/Goals Expected Outcomes/Goals 1. PO intake to meet at least 75% of nutritional needs. 2. Wt stability, skin to remain intact.
[2017-07-05] MEDS: Levothyroxine 0.1 Mg Tab PO SCH (06:43)
[2017-07-05] MEDS: Ferrous Sulfate 325 MG TAB PO SCH (09:25)
[2017-07-05] MEDS: Multivitamin w/ Minerals Tab PO SCH (09:26)
--- NOTE | 2017-07-05 13:36 | Progress Notes ---
DATE: 07/04/2017 SUBJECTIVE: The patient is currently in the hospital, paranoid, talking about different topics, impoverished, nonsensical, stating people are trying to stab her in the eye. Her conservator is at bedside. The patient is rambling on exam, talking nonsense, delusional, refusing medications, but she did receive Haldol Decanoate, no side effects. ASSESSMENT: The patient remains delusional, psychosis ongoing, nonsensical, and rambling. PLAN: We will continue to monitor. The patient was given Haldol Decanoate. JOB# [id number]
--- NOTE | 2017-07-05 15:31 | Internal Medicine Prog Note ---
Internal Medicine Subjective - Subjective Service Date: 07/05/17 Patient is:: awake, verbal, interactive Per staff patient has:: no adverse event, no episodes of fall, poor oral intake , confused, tolerating meds Internal Medicine Objective - Physical Exam Vitals and I&O: Vital Signs Temp 0 F 07/05/17 06:34 Pulse 0 07/04/17 14:30 Resp 18 07/05/17 08:00 BP 0/0 07/04/17 14:30 Pulse Ox 0 07/04/17 14:30 Intake & Output 07/04/17 07/05/17 07/05/17 18:59 06:59 18:59 Intake Total 950 240 Balance 950 240 Intake: Oral 950 240 Other: # Voids 4 3 # Bowel Movements 1 1 Active Medications: Current Medications Benazepril HCl (Lotensin) 20 mg PO DAILY [facility] Stop: 08/14/17 08:59 Last Admin: 07/05/17 10:02 Dose: Not Given Benztropine Mesylate (Cogentin) 0.5 mg PO BID [facility] Stop: 08/21/17 08:59 Last Admin: 07/05/17 09:25 Dose: Not Given Cholecalciferol (Vitamin D3) 5,000 iu PO DAILY [facility] Stop: 08/14/17 08:59 Last Admin: 07/05/17 09:25 Dose: Not Given Cilostazol (Pletal) 100 mg PO BID [facility] Stop: 08/14/17 08:59 Last Admin: 07/05/17 09:25 Dose: Not Given Donepezil HCl (Aricept) 5 mg PO DAILY [facility] Stop: 09/01/17 08:59 Last Admin: 07/05/17 09:26 Dose: Not Given Ferrous Sulfate (Iron) 325 mg PO DAILY [facility] Stop: 08/14/17 08:59 Last Admin: 07/05/17 09:25 Dose: Not Given Haloperidol (Haldol) 2 mg PO BID [facility] PRN Reason: Protocol Stop: 08/21/17 08:59 Last Admin: 07/05/17 09:26 Dose: Not Given Haloperidol Decanoate (Haldol Dec) 25 mg IM QMONTH [facility] PRN Reason: Protocol Stop: 08/28/17 08:59 Last Admin: 06/29/17 10:02 Dose: 25 mg Levothyroxine Sodium (Synthroid) 0.2 mg PO QDAC [facility] Stop: 08/14/17 07:29 Last Admin: 07/05/17 06:43 Dose: Not Given Lorazepam (Ativan) 1 mg PO Q4HR PRN; Protocol PRN Reason: Agitation Stop: 08/13/17 18:14 Last Admin: 07/02/17 09:07 Dose: 1 mg Magnesium Hydroxide (Milk Of Magnesia) 30 ml PO BID PRN PRN Reason: Constipation Stop: 08/13/17 18:01 Trazodone HCl (Desyrel) 25 mg PO HS [facility] PRN Reason: Protocol Stop: 08/13/17 20:59 Last Admin: 07/04/17 21:25 Dose: Not Given General: demented HEENT: NC/AT, PERRLA Neck: Supple Lungs: CTAB Cardiovascular: RRR Abdomen: soft, non-tender, non-distended, positive bowel sound Neurological: disorganized Internal Medicine Assmt/Plan - Assessment Assessment: htn dementia psychosis hypothyroidism - Plan Plan: monitor bp will adjust bp meds accordingly continue current orders Nutritional Asmnt/Malnutr-PDOC - Dietary Evaluation Malnutrition Findings (Please click <Entered> for more info): Nutritional Asmnt/Malnutrition Start: 06/21/17 13: 06 Text: Status: Complete Freq: Document 06/21/17 13:06 EZE (Rec: 06/21/17 13:21 LCELIGIO [email or web address]) Nutritional Asmnt/Malnutrition Patient General Information Nutritional Screening Low Risk Diagnosis psychosis NOS Pertinent Medical Hx/Surgical Hx HTN, hypothyroidism, dementia, psychosis Subjective Information Pt seen sitting on bed at time of visit, confused. Per notes , PO intake 100%. Per NR note, pt refuses medications and care. Current Diet Order/ Nutrition Support [facility] soft ground Pertinent Medications vitamin D3, iron, synthroid Pertinent Labs no labs Nutritional Hx/Data Height 5 ft 5 in Height (Calculated Centimeters) 165.1 Current Weight (lbs) 157 lb 4.8 oz Weight (Calculated Kilograms) 71.4 Weight (Calculated Grams) 14332.1 [place] Body Weight 125 % [place] Body Weight 126 Body Mass Index (BMI) 26.2 Weight Status Overweight GI Symptoms GI Symptoms None Last BM 06/15 Difficult in: None Skin Integrity/Comment: skin tear on left hand first digit, cyst on right mandibular area Current %PO Good (75-100%) Estimated Nutritional Goals Calories/Kcals/Kg 25-30 Kcals Calculated 2855-4841 Protein g/k Protein Calculated 57 Fluid: ml 1425-1710ml (1ml/kcal) Nutritional Problem No current Nutrition Prob Problem N/A Malnutrition Alert Protein-Calorie Malnutrition N/A Is there a minimum of two criteria No selected? Query Text:Check all the applicable criteria. A minimum of two criteria are recommended for diagnosis of either severe or non-severe malnutrition. Intervention/Recommendation Comments 1. Continue with current diet as ordered. 2. Monitor PO intake, wt, labs and skin integrity 3. F/U as low risk in 7 days, 06/27 Expected Outcomes/Goals Expected Outcomes/Goals 1. PO intake to meet at least 75% of nutritional needs. 2. Wt stability, skin to remain intact.
[2017-07-06] MEDS: Levothyroxine 0.1 Mg Tab PO SCH (06:42)
[2017-07-06] MEDS: Multivitamin w/ Minerals Tab PO SCH (08:48)
[2017-07-06] MEDS: Ferrous Sulfate 325 MG TAB PO SCH (08:48)
--- NOTE | 2017-07-06 12:46 | Progress Notes ---
DATE: 07/05/2017 SUBJECTIVE: The patient seen, chart reviewed, discussed with staff. The patient remains bizarre, unruly at times, still refusing treatment, refusing medications, but she is currently on Haldol Decanoate, so she is covered in regard to antipsychotic medications. The patient is gravely disabled. I did meet with her conservator on Monday. Court date is scheduled for early July. The patient is sleeping well, eating well. She is still requiring prompting and redirection, still acting bizarre, making nonsensical statements, talking about the devil, highly paranoid. PLAN: We will continue to monitor. Given ongoing symptoms and severity of her symptoms, she is not safe for discharge. JOB# [id number]
--- NOTE | 2017-07-06 13:21 | Internal Medicine Prog Note ---
Internal Medicine Subjective - Subjective Service Date: 07/06/17 Patient seen and examined:: with staff Patient is:: awake, verbal, interactive Per staff patient has:: no adverse event, no episodes of fall, poor oral intake , confused, tolerating meds Internal Medicine Objective - Physical Exam Vitals and I&O: Vital Signs Temp 0 F 07/05/17 06:34 Pulse 0 07/04/17 14:30 Resp 18 07/05/17 08:00 BP 0/0 07/04/17 14:30 Pulse Ox 0 07/04/17 14:30 Intake & Output 07/05/17 07/06/17 07/06/17 18:59 06:59 18:59 Intake Total 800 120 Balance 800 120 Intake: Oral 800 120 Other: # Voids 3 # Bowel Movements 1 Stool Characteristics Formed Active Medications: Current Medications Benazepril HCl (Lotensin) 20 mg PO DAILY [facility] Stop: 08/14/17 08:59 Last Admin: 07/06/17 08:48 Dose: Not Given Benztropine Mesylate (Cogentin) 0.5 mg PO BID [facility] Stop: 08/21/17 08:59 Last Admin: 07/06/17 08:48 Dose: Not Given Cholecalciferol (Vitamin D3) 5,000 iu PO DAILY [facility] Stop: 08/14/17 08:59 Last Admin: 07/06/17 08:48 Dose: Not Given Cilostazol (Pletal) 100 mg PO BID [facility] Stop: 08/14/17 08:59 Last Admin: 07/06/17 08:48 Dose: Not Given Donepezil HCl (Aricept) 5 mg PO DAILY [facility] Stop: 09/01/17 08:59 Last Admin: 07/06/17 08:48 Dose: Not Given Ferrous Sulfate (Iron) 325 mg PO DAILY [facility] Stop: 08/14/17 08:59 Last Admin: 07/06/17 08:48 Dose: Not Given Haloperidol (Haldol) 2 mg PO BID [facility] PRN Reason: Protocol Stop: 08/21/17 08:59 Last Admin: 07/06/17 08:48 Dose: Not Given Haloperidol Decanoate (Haldol Dec) 25 mg IM QMONTH [facility] PRN Reason: Protocol Stop: 08/28/17 08:59 Last Admin: 06/29/17 10:02 Dose: 25 mg Levothyroxine Sodium (Synthroid) 0.2 mg PO QDAC [facility] Stop: 08/14/17 07:29 Last Admin: 07/06/17 06:42 Dose: 0.2 mg Lorazepam (Ativan) 1 mg PO Q4HR PRN; Protocol PRN Reason: Agitation Stop: 08/13/17 18:14 Last Admin: 07/02/17 09:07 Dose: 1 mg Magnesium Hydroxide (Milk Of Magnesia) 30 ml PO BID PRN PRN Reason: Constipation Stop: 08/13/17 18:01 Trazodone HCl (Desyrel) 25 mg PO HS [facility] PRN Reason: Protocol Stop: 08/13/17 20:59 Last Admin: 07/05/17 21:14 Dose: 25 mg General: demented HEENT: NC/AT, PERRLA Neck: Supple Lungs: CTAB Cardiovascular: RRR Abdomen: soft, non-tender, non-distended, positive bowel sound Neurological: disorganized Internal Medicine Assmt/Plan - Assessment Assessment: htn dementia psychosis hypothyroidism - Plan Plan: monitor bp will adjust bp meds accordingly continue current orders Nutritional Asmnt/Malnutr-PDOC - Dietary Evaluation Malnutrition Findings (Please click <Entered> for more info): Nutritional Asmnt/Malnutrition Start: 06/21/17 13: 06 Text: Status: Complete Freq: Document 06/21/17 13:06 ZACARIAS (Rec: 06/21/17 13:21 KIRILLG [email or web address]) Nutritional Asmnt/Malnutrition Patient General Information Nutritional Screening Low Risk Diagnosis psychosis NOS Pertinent Medical Hx/Surgical Hx HTN, hypothyroidism, dementia, psychosis Subjective Information Pt seen sitting on bed at time of visit, confused. Per notes , PO intake 100%. Per NR note, pt refuses medications and care. Current Diet Order/ Nutrition Support [facility] soft ground Pertinent Medications vitamin D3, iron, synthroid Pertinent Labs no labs Nutritional Hx/Data Height 5 ft 5 in Height (Calculated Centimeters) 165.1 Current Weight (lbs) 157 lb 4.8 oz Weight (Calculated Kilograms) 71.4 Weight (Calculated Grams) 84447.1 [place] Body Weight 125 % [place] Body Weight 126 Body Mass Index (BMI) 26.2 Weight Status Overweight GI Symptoms GI Symptoms None Last BM 06/15 Difficult in: None Skin Integrity/Comment: skin tear on left hand first digit, cyst on right mandibular area Current %PO Good (75-100%) Estimated Nutritional Goals Calories/Kcals/Kg 25-30 Kcals Calculated 3609-2262 Protein g/k Protein Calculated 57 Fluid: ml 1425-1710ml (1ml/kcal) Nutritional Problem No current Nutrition Prob Problem N/A Malnutrition Alert Protein-Calorie Malnutrition N/A Is there a minimum of two criteria No selected? Query Text:Check all the applicable criteria. A minimum of two criteria are recommended for diagnosis of either severe or non-severe malnutrition. Intervention/Recommendation Comments 1. Continue with current diet as ordered. 2. Monitor PO intake, wt, labs and skin integrity 3. F/U as low risk in 7 days, 06/27 Expected Outcomes/Goals Expected Outcomes/Goals 1. PO intake to meet at least 75% of nutritional needs. 2. Wt stability, skin to remain intact.
[2017-07-07] MEDS: Levothyroxine 0.1 Mg Tab PO SCH (07:00)
[2017-07-07] MEDS: Ferrous Sulfate 325 MG TAB PO SCH (08:49)
[2017-07-07] MEDS: Multivitamin w/ Minerals Tab PO SCH (08:49)
--- NOTE | 2017-07-07 15:18 | Internal Medicine Prog Note ---
Internal Medicine Subjective - Subjective Service Date: 07/07/17 Patient is:: awake, verbal, interactive Per staff patient has:: no adverse event, no episodes of fall, poor oral intake , confused, tolerating meds Internal Medicine Objective - Physical Exam Vitals and I&O: Vital Signs Temp 0 F 07/05/17 06:34 Pulse 80 07/07/17 14:53 Resp 20 07/07/17 14:53 BP 140/83 07/07/17 08:49 Pulse Ox 0 07/04/17 14:30 Intake & Output 07/06/17 07/07/17 07/07/17 18:59 06:59 18:59 Other: Stool Characteristics Formed Soft Formed Active Medications: Current Medications Benazepril HCl (Lotensin) 20 mg PO DAILY [facility] Stop: 08/14/17 08:59 Last Admin: 07/07/17 08:49 Dose: Not Given Benztropine Mesylate (Cogentin) 0.5 mg PO BID [facility] Stop: 08/21/17 08:59 Last Admin: 07/07/17 08:48 Dose: Not Given Cholecalciferol (Vitamin D3) 5,000 iu PO DAILY [facility] Stop: 08/14/17 08:59 Last Admin: 07/07/17 08:49 Dose: Not Given Cilostazol (Pletal) 100 mg PO BID [facility] Stop: 08/14/17 08:59 Last Admin: 07/07/17 08:49 Dose: Not Given Donepezil HCl (Aricept) 5 mg PO DAILY [facility] Stop: 09/01/17 08:59 Last Admin: 07/07/17 08:49 Dose: Not Given Ferrous Sulfate (Iron) 325 mg PO DAILY [facility] Stop: 08/14/17 08:59 Last Admin: 07/07/17 08:49 Dose: Not Given Haloperidol (Haldol) 2 mg PO BID [facility] PRN Reason: Protocol Stop: 08/21/17 08:59 Last Admin: 07/07/17 08:49 Dose: Not Given Haloperidol Decanoate (Haldol Dec) 25 mg IM QMONTH [facility] PRN Reason: Protocol Stop: 08/28/17 08:59 Last Admin: 06/29/17 10:02 Dose: 25 mg Levothyroxine Sodium (Synthroid) 0.2 mg PO QDAC [facility] Stop: 08/14/17 07:29 Last Admin: 07/07/17 07:00 Dose: Not Given Lorazepam (Ativan) 1 mg PO Q4HR PRN; Protocol PRN Reason: Agitation Stop: 08/13/17 18:14 Last Admin: 07/02/17 09:07 Dose: 1 mg Magnesium Hydroxide (Milk Of Magnesia) 30 ml PO BID PRN PRN Reason: Constipation Stop: 08/13/17 18:01 Trazodone HCl (Desyrel) 25 mg PO HS [facility] PRN Reason: Protocol Stop: 08/13/17 20:59 Last Admin: 07/06/17 21:56 Dose: 25 mg General: demented HEENT: NC/AT, PERRLA Neck: Supple Lungs: CTAB Cardiovascular: RRR Abdomen: soft, non-tender, non-distended, positive bowel sound Neurological: disorganized Internal Medicine Assmt/Plan - Assessment Assessment: htn dementia psychosis hypothyroidism - Plan Plan: monitor bp will adjust bp meds accordingly continue current orders Nutritional Asmnt/Malnutr-PDOC - Dietary Evaluation Malnutrition Findings (Please click <Entered> for more info): Nutritional Asmnt/Malnutrition Start: 06/21/17 13: 06 Text: Status: Complete Freq: Document 06/21/17 13:06 LCHENG (Rec: 06/21/17 13:21 LCHENG [email or web address]) Nutritional Asmnt/Malnutrition Patient General Information Nutritional Screening Low Risk Diagnosis psychosis NOS Pertinent Medical Hx/Surgical Hx HTN, hypothyroidism, dementia, psychosis Subjective Information Pt seen sitting on bed at time of visit, confused. Per notes , PO intake 100%. Per NR note, pt refuses medications and care. Current Diet Order/ Nutrition Support [facility] soft ground Pertinent Medications vitamin D3, iron, synthroid Pertinent Labs no labs Nutritional Hx/Data Height 5 ft 5 in Height (Calculated Centimeters) 165.1 Current Weight (lbs) 157 lb 4.8 oz Weight (Calculated Kilograms) 71.4 Weight (Calculated Grams) 22522.1 [place] Body Weight 125 % [place] Body Weight 126 Body Mass Index (BMI) 26.2 Weight Status Overweight GI Symptoms GI Symptoms None Last BM 06/15 Difficult in: None Skin Integrity/Comment: skin tear on left hand first digit, cyst on right mandibular area Current %PO Good (75-100%) Estimated Nutritional Goals Calories/Kcals/Kg 25-30 Kcals Calculated 3591-2388 Protein g/k Protein Calculated 57 Fluid: ml 1425-1710ml (1ml/kcal) Nutritional Problem No current Nutrition Prob Problem N/A Malnutrition Alert Protein-Calorie Malnutrition N/A Is there a minimum of two criteria No selected? Query Text:Check all the applicable criteria. A minimum of two criteria are recommended for diagnosis of either severe or non-severe malnutrition. Intervention/Recommendation Comments 1. Continue with current diet as ordered. 2. Monitor PO intake, wt, labs and skin integrity 3. F/U as low risk in 7 days, 06/27 Expected Outcomes/Goals Expected Outcomes/Goals 1. PO intake to meet at least 75% of nutritional needs. 2. Wt stability, skin to remain intact.
--- NOTE | 2017-07-08 02:22 | Progress Notes ---
DATE: 07/06/2017 Dr. Talavera covering for Dr. Snyder. SUBJECTIVE: Chart reviewed and the patient interviewed. Also discussed the patient's condition with the staff and reviewed the records and labs. The patient is still in angry and in irritable mood and she is hyper-uatsdin and keeps talking about God. She also is still in irritable mood and she is still paranoid and suspicious. The patient also is still have disorganized thoughts. She also is still thinking that people are trying to stab her in the eye. At the same time, she is refusing to take medications except trazodone, thinking that" God is taking care of me." ASSESSMENT: The patient is still psychotic and confused. TREATMENT PLAN: We will continue monitoring her behavior and her condition closely. The patient did take Haldol Decanoate injection on 06/29/2017. We will continue working on the patient's compliance with taking her medications. At the same time, we will continue monitoring behavior and we will continue to follow up closely. JOB# [id number]
[2017-07-08] MEDS: Ferrous Sulfate 325 MG TAB PO SCH (08:06)
[2017-07-08] MEDS: Multivitamin w/ Minerals Tab PO SCH (08:07)
--- NOTE | 2017-07-08 16:18 | Progress Notes ---
DATE: SUBJECTIVE: Chart reviewed and the patient interviewed. Also discussed the patient's condition with the staff and reviewed records and labs. The patient is still irritable mood and she is still talking about nothing wrong with her and she continues to answer question by saying "fine." She also is still confused and restless and paranoid. She also refusing medications except trazodone and she is still restless. Although she refuses medications, yet she did take Haldol decanoate on 06/29/2017, which has relatively in a calmer place at this time. ASSESSMENT: The patient is still psychotic and agitated. TREATMENT PLAN: Continue to monitor her behavior and her condition closely. Also, continue to work on her compliance with taking medications and we will continue to follow up. [facility]# [id number]
[2017-07-09] MEDS: Levothyroxine 0.1 Mg Tab PO SCH (06:34)
[2017-07-09] MEDS: Ferrous Sulfate 325 MG TAB PO SCH (08:22)
[2017-07-09] MEDS: Multivitamin w/ Minerals Tab PO SCH (08:22)
--- NOTE | 2017-07-09 15:47 | Internal Medicine Prog Note ---
Internal Medicine Subjective - Subjective Service Date: 07/09/17 Patient is:: awake, verbal, interactive Per staff patient has:: no adverse event, no episodes of fall, poor oral intake , confused, tolerating meds Internal Medicine Objective - Physical Exam Vitals and I&O: Vital Signs Temp 97.6 F 07/09/17 14:43 Pulse 75 07/09/17 14:43 Resp 18 07/09/17 14:43 BP 98/68 07/09/17 14:43 Pulse Ox 95 07/09/17 14:43 Intake & Output 07/08/17 07/09/17 07/09/17 18:59 06:59 18:59 Intake Total 900 120 Balance 900 120 Intake: Oral 900 120 Other: # Voids 4 1 # Bowel Movements 1 Active Medications: Current Medications Benazepril HCl (Lotensin) 20 mg PO DAILY [facility] Stop: 08/14/17 08:59 Last Admin: 07/09/17 08:23 Dose: 20 mg Benztropine Mesylate (Cogentin) 0.5 mg PO BID [facility] Stop: 08/21/17 08:59 Last Admin: 07/09/17 08:22 Dose: 0.5 mg Cholecalciferol (Vitamin D3) 5,000 iu PO DAILY [facility] Stop: 08/14/17 08:59 Last Admin: 07/09/17 08:21 Dose: 5,000 iu Cilostazol (Pletal) 100 mg PO BID [facility] Stop: 08/14/17 08:59 Last Admin: 07/09/17 08:21 Dose: 100 mg Donepezil HCl (Aricept) 5 mg PO DAILY [facility] Stop: 09/01/17 08:59 Last Admin: 07/09/17 08:22 Dose: 5 mg Ferrous Sulfate (Iron) 325 mg PO DAILY [facility] Stop: 08/14/17 08:59 Last Admin: 07/09/17 08:22 Dose: 325 mg Haloperidol (Haldol) 2 mg PO BID [facility] PRN Reason: Protocol Stop: 08/21/17 08:59 Last Admin: 07/09/17 08:21 Dose: 2 mg Haloperidol Decanoate (Haldol Dec) 25 mg IM QMONTH [facility] PRN Reason: Protocol Stop: 08/28/17 08:59 Last Admin: 06/29/17 10:02 Dose: 25 mg Levothyroxine Sodium (Synthroid) 0.2 mg PO QDAC [facility] Stop: 08/14/17 07:29 Last Admin: 07/09/17 06:34 Dose: Not Given Lorazepam (Ativan) 1 mg PO Q4HR PRN; Protocol PRN Reason: Agitation Stop: 08/13/17 18:14 Last Admin: 07/09/17 08:23 Dose: 1 mg Magnesium Hydroxide (Milk Of Magnesia) 30 ml PO BID PRN PRN Reason: Constipation Stop: 08/13/17 18:01 Trazodone HCl (Desyrel) 25 mg PO HS [facility] PRN Reason: Protocol Stop: 08/13/17 20:59 Last Admin: 07/08/17 21:18 Dose: Not Given General: demented HEENT: NC/AT, PERRLA Neck: Supple Lungs: CTAB Cardiovascular: RRR Abdomen: soft, non-tender, non-distended, positive bowel sound Neurological: disorganized Internal Medicine Assmt/Plan - Assessment Assessment: htn dementia psychosis hypothyroidism - Plan Plan: monitor bp will adjust bp meds accordingly continue current orders Nutritional Asmnt/Malnutr-PDOC - Dietary Evaluation Malnutrition Findings (Please click <Entered> for more info): Nutritional Asmnt/Malnutrition Start: 06/21/17 13: 06 Text: Status: Complete Freq: Document 06/21/17 13:06 EZE (Rec: 06/21/17 13:21 LCKIRILLG [email or web address]) Nutritional Asmnt/Malnutrition Patient General Information Nutritional Screening Low Risk Diagnosis psychosis NOS Pertinent Medical Hx/Surgical Hx HTN, hypothyroidism, dementia, psychosis Subjective Information Pt seen sitting on bed at time of visit, confused. Per notes , PO intake 100%. Per NR note, pt refuses medications and care. Current Diet Order/ Nutrition Support [facility] soft ground Pertinent Medications vitamin D3, iron, synthroid Pertinent Labs no labs Nutritional Hx/Data Height 5 ft 5 in Height (Calculated Centimeters) 165.1 Current Weight (lbs) 157 lb 4.8 oz Weight (Calculated Kilograms) 71.4 Weight (Calculated Grams) 27291.1 [place] Body Weight 125 % [place] Body Weight 126 Body Mass Index (BMI) 26.2 Weight Status Overweight GI Symptoms GI Symptoms None Last BM 06/15 Difficult in: None Skin Integrity/Comment: skin tear on left hand first digit, cyst on right mandibular area Current %PO Good (75-100%) Estimated Nutritional Goals Calories/Kcals/Kg 25-30 Kcals Calculated 5563-8352 Protein g/k Protein Calculated 57 Fluid: ml 1425-1710ml (1ml/kcal) Nutritional Problem No current Nutrition Prob Problem N/A Malnutrition Alert Protein-Calorie Malnutrition N/A Is there a minimum of two criteria No selected? Query Text:Check all the applicable criteria. A minimum of two criteria are recommended for diagnosis of either severe or non-severe malnutrition. Intervention/Recommendation Comments 1. Continue with current diet as ordered. 2. Monitor PO intake, wt, labs and skin integrity 3. F/U as low risk in 7 days, 06/27 Expected Outcomes/Goals Expected Outcomes/Goals 1. PO intake to meet at least 75% of nutritional needs. 2. Wt stability, skin to remain intact.
[2017-07-10] MEDS: Levothyroxine 0.1 Mg Tab PO SCH (06:36)
[2017-07-10] MEDS: Ferrous Sulfate 325 MG TAB PO SCH (08:43)
--- NOTE | 2017-07-10 08:49 | Progress Notes ---
DATE: 07/08/2017 SUBJECTIVE: Chart reviewed and the patient interviewed. Also discussed the patient's condition with the staff and reviewed records and labs. The patient still has episodes of anger and of irritability. The patient also is still uncooperative with the staff and refused to take medications except trazodone at night. She also still has episodes of yelling. Even she refused to take medications, said her reason is "God takes care of me and I do not need medicine." She still has poor insight and poor judgment. Also, personal hygiene is still poor. ASSESSMENT: The patient is still psychotic and agitated. TREATMENT PLAN: Continue to monitor her behavior and her condition closely. Also, continue to work on her psychosis and her ineffective coping. ESTIMATED LENGTH OF STAY: 2-4 days. [facility]# [id number]
[2017-07-10] MEDS: Multivitamin w/ Minerals Tab PO SCH (08:56)
--- NOTE | 2017-07-10 13:15 | Internal Medicine Prog Note ---
Internal Medicine Subjective - Subjective Service Date: 07/10/17 Patient seen and examined:: with staff Patient is:: awake, verbal, interactive Per staff patient has:: no adverse event, no episodes of fall, poor oral intake , confused, tolerating meds Internal Medicine Objective - Physical Exam Vitals and I&O: Vital Signs Temp 98.4 F 07/09/17 19:59 Pulse 85 07/09/17 19:59 Resp 20 07/09/17 19:59 BP 130/67 07/09/17 19:59 Pulse Ox 93 07/09/17 19:59 Intake & Output 07/09/17 07/10/17 07/10/17 18:59 06:59 18:59 Intake Total 900 120 Balance 900 120 Intake: Oral 900 120 Other: # Voids 4 3 # Bowel Movements 1 0 Active Medications: Current Medications Benazepril HCl (Lotensin) 20 mg PO DAILY [facility] Stop: 08/14/17 08:59 Last Admin: 07/10/17 08:55 Dose: Not Given Benztropine Mesylate (Cogentin) 0.5 mg PO BID [facility] Stop: 08/21/17 08:59 Last Admin: 07/10/17 08:43 Dose: Not Given Cholecalciferol (Vitamin D3) 5,000 iu PO DAILY [facility] Stop: 08/14/17 08:59 Last Admin: 07/10/17 08:43 Dose: Not Given Cilostazol (Pletal) 100 mg PO BID [facility] Stop: 08/14/17 08:59 Last Admin: 07/10/17 08:48 Dose: Not Given Donepezil HCl (Aricept) 5 mg PO DAILY [facility] Stop: 09/01/17 08:59 Last Admin: 07/10/17 08:43 Dose: Not Given Ferrous Sulfate (Iron) 325 mg PO DAILY [facility] Stop: 08/14/17 08:59 Last Admin: 07/10/17 08:43 Dose: Not Given Haloperidol (Haldol) 2 mg PO BID [facility] PRN Reason: Protocol Stop: 08/21/17 08:59 Last Admin: 07/10/17 08:44 Dose: Not Given Haloperidol Decanoate (Haldol Dec) 25 mg IM QMONTH [facility] PRN Reason: Protocol Stop: 08/28/17 08:59 Last Admin: 06/29/17 10:02 Dose: 25 mg Levothyroxine Sodium (Synthroid) 0.2 mg PO QDAC [facility] Stop: 08/14/17 07:29 Last Admin: 07/10/17 06:36 Dose: 0.2 mg Lorazepam (Ativan) 1 mg PO Q4HR PRN; Protocol PRN Reason: Agitation Stop: 08/13/17 18:14 Last Admin: 07/09/17 08:23 Dose: 1 mg Magnesium Hydroxide (Milk Of Magnesia) 30 ml PO BID PRN PRN Reason: Constipation Stop: 08/13/17 18:01 Trazodone HCl (Desyrel) 25 mg PO HS [facility] PRN Reason: Protocol Stop: 08/13/17 20:59 Last Admin: 07/09/17 21:43 Dose: 25 mg General: demented HEENT: NC/AT, PERRLA Neck: Supple Lungs: CTAB Cardiovascular: RRR Abdomen: soft, non-tender, non-distended, positive bowel sound Neurological: disorganized Internal Medicine Assmt/Plan - Assessment Assessment: htn dementia psychosis hypothyroidism - Plan Plan: monitor bp will adjust bp meds accordingly continue current orders Nutritional Asmnt/Malnutr-PDOC - Dietary Evaluation Malnutrition Findings (Please click <Entered> for more info): Nutritional Asmnt/Malnutrition Start: 06/21/17 13: 06 Text: Status: Complete Freq: Document 06/21/17 13:06 KIRILL (Rec: 06/21/17 13:21 KIRILL [id number]) Nutritional Asmnt/Malnutrition Patient General Information Nutritional Screening Low Risk Diagnosis psychosis NOS Pertinent Medical Hx/Surgical Hx HTN, hypothyroidism, dementia, psychosis Subjective Information Pt seen sitting on bed at time of visit, confused. Per notes , PO intake 100%. Per NR note, pt refuses medications and care. Current Diet Order/ Nutrition Support [facility] soft ground Pertinent Medications vitamin D3, iron, synthroid Pertinent Labs no labs Nutritional Hx/Data Height 5 ft 5 in Height (Calculated Centimeters) 165.1 Current Weight (lbs) 157 lb 4.8 oz Weight (Calculated Kilograms) 71.4 Weight (Calculated Grams) 00434.1 [place] Body Weight 125 % [place] Body Weight 126 Body Mass Index (BMI) 26.2 Weight Status Overweight GI Symptoms GI Symptoms None Last BM 06/15 Difficult in: None Skin Integrity/Comment: skin tear on left hand first digit, cyst on right mandibular area Current %PO Good (75-100%) Estimated Nutritional Goals Calories/Kcals/Kg 25-30 Kcals Calculated 8764-4645 Protein g/k Protein Calculated 57 Fluid: ml 1425-1710ml (1ml/kcal) Nutritional Problem No current Nutrition Prob Problem N/A Malnutrition Alert Protein-Calorie Malnutrition N/A Is there a minimum of two criteria No selected? Query Text:Check all the applicable criteria. A minimum of two criteria are recommended for diagnosis of either severe or non-severe malnutrition. Intervention/Recommendation Comments 1. Continue with current diet as ordered. 2. Monitor PO intake, wt, labs and skin integrity 3. F/U as low risk in 7 days, 06/27 Expected Outcomes/Goals Expected Outcomes/Goals 1. PO intake to meet at least 75% of nutritional needs. 2. Wt stability, skin to remain intact.
--- NOTE | 2017-07-11 04:03 | Progress Notes ---
DATE: 07/10/2017 SUBJECTIVE: The patient with continued anger episodes, irritable episodes, still talking about the devil, refusing medications, stating that "God gives her medications". The patient with poor insight and judgment. She is on Haldol decanoate. No EPS. No over sedation noted. She is conserved. ASSESSMENT: The patient remains psychotic, likely approaching her baseline. Still yelling at times. PLAN: We will continue to monitor the patient under conservatorship. JOB# [id number]
[2017-07-11] MEDS: Levothyroxine 0.1 Mg Tab PO SCH (06:40)
[2017-07-11] MEDS: Multivitamin w/ Minerals Tab PO SCH (10:00)
[2017-07-11] MEDS: Ferrous Sulfate 325 MG TAB PO SCH (10:00)
--- NOTE | 2017-07-11 13:02 | Internal Medicine Prog Note ---
Internal Medicine Subjective - Subjective Service Date: 07/11/17 Patient is:: awake, verbal, interactive Per staff patient has:: no adverse event, no episodes of fall, poor oral intake , confused, tolerating meds Internal Medicine Objective - Physical Exam Vitals and I&O: Vital Signs Temp 98.7 F 07/11/17 12:42 Pulse 75 07/11/17 12:42 Resp 18 07/11/17 12:42 BP 129/74 07/11/17 12:42 Pulse Ox 96 07/11/17 12:42 Intake & Output 07/10/17 07/11/17 07/11/17 18:59 06:59 18:59 Intake Total 900 240 Output Total 1 Balance 900 239 Intake: Oral 900 240 Output: Stool 1 Other: # Voids 3 3 # Bowel Movements 1 1 Active Medications: Current Medications Benazepril HCl (Lotensin) 20 mg PO DAILY [facility] Stop: 08/14/17 08:59 Last Admin: 07/11/17 09:59 Dose: Not Given Benztropine Mesylate (Cogentin) 0.5 mg PO BID [facility] Stop: 08/21/17 08:59 Last Admin: 07/11/17 09:59 Dose: Not Given Cholecalciferol (Vitamin D3) 5,000 iu PO DAILY [facility] Stop: 08/14/17 08:59 Last Admin: 07/11/17 10:00 Dose: Not Given Cilostazol (Pletal) 100 mg PO BID [facility] Stop: 08/14/17 08:59 Last Admin: 07/11/17 09:59 Dose: Not Given Donepezil HCl (Aricept) 5 mg PO DAILY [facility] Stop: 09/01/17 08:59 Last Admin: 07/11/17 10:00 Dose: Not Given Ferrous Sulfate (Iron) 325 mg PO DAILY [facility] Stop: 08/14/17 08:59 Last Admin: 07/11/17 10:00 Dose: Not Given Haloperidol (Haldol) 2 mg PO BID [facility] PRN Reason: Protocol Stop: 08/21/17 08:59 Last Admin: 07/11/17 10:00 Dose: Not Given Haloperidol Decanoate (Haldol Dec) 25 mg IM QMONTH [facility] PRN Reason: Protocol Stop: 08/28/17 08:59 Last Admin: 06/29/17 10:02 Dose: 25 mg Levothyroxine Sodium (Synthroid) 0.2 mg PO QDAC [facility] Stop: 08/14/17 07:29 Last Admin: 07/11/17 06:40 Dose: 0.2 mg Lorazepam (Ativan) 1 mg PO Q4HR PRN; Protocol PRN Reason: Agitation Stop: 08/13/17 18:14 Last Admin: 07/09/17 08:23 Dose: 1 mg Magnesium Hydroxide (Milk Of Magnesia) 30 ml PO BID PRN PRN Reason: Constipation Stop: 08/13/17 18:01 Trazodone HCl (Desyrel) 25 mg PO HS [facility] PRN Reason: Protocol Stop: 08/13/17 20:59 Last Admin: 07/10/17 21:47 Dose: 25 mg General: demented HEENT: NC/AT, PERRLA Neck: Supple Lungs: CTAB Cardiovascular: RRR Abdomen: soft, non-tender, non-distended, positive bowel sound Neurological: disorganized Internal Medicine Assmt/Plan - Assessment Assessment: htn dementia psychosis hypothyroidism - Plan Plan: monitor bp will adjust bp meds accordingly continue current orders Nutritional Asmnt/Malnutr-PDOC - Dietary Evaluation Malnutrition Findings (Please click <Entered> for more info): Nutritional Asmnt/Malnutrition Start: 06/21/17 13: 06 Text: Status: Complete Freq: Document 06/21/17 13:06 ZACARIAS (Rec: 06/21/17 13:21 KIRILLG [id number]) Nutritional Asmnt/Malnutrition Patient General Information Nutritional Screening Low Risk Diagnosis psychosis NOS Pertinent Medical Hx/Surgical Hx HTN, hypothyroidism, dementia, psychosis Subjective Information Pt seen sitting on bed at time of visit, confused. Per notes , PO intake 100%. Per NR note, pt refuses medications and care. Current Diet Order/ Nutrition Support [facility] soft ground Pertinent Medications vitamin D3, iron, synthroid Pertinent Labs no labs Nutritional Hx/Data Height 5 ft 5 in Height (Calculated Centimeters) 165.1 Current Weight (lbs) 157 lb 4.8 oz Weight (Calculated Kilograms) 71.4 Weight (Calculated Grams) 79956.1 [place] Body Weight 125 % [place] Body Weight 126 Body Mass Index (BMI) 26.2 Weight Status Overweight GI Symptoms GI Symptoms None Last BM 06/15 Difficult in: None Skin Integrity/Comment: skin tear on left hand first digit, cyst on right mandibular area Current %PO Good (75-100%) Estimated Nutritional Goals Calories/Kcals/Kg 25-30 Kcals Calculated 4178-9753 Protein g/k Protein Calculated 57 Fluid: ml 1425-1710ml (1ml/kcal) Nutritional Problem No current Nutrition Prob Problem N/A Malnutrition Alert Protein-Calorie Malnutrition N/A Is there a minimum of two criteria No selected? Query Text:Check all the applicable criteria. A minimum of two criteria are recommended for diagnosis of either severe or non-severe malnutrition. Intervention/Recommendation Comments 1. Continue with current diet as ordered. 2. Monitor PO intake, wt, labs and skin integrity 3. F/U as low risk in 7 days, 06/27 Expected Outcomes/Goals Expected Outcomes/Goals 1. PO intake to meet at least 75% of nutritional needs. 2. Wt stability, skin to remain intact.
--- NOTE | 2017-07-11 13:11 | Discharge Summary ---
DATE OF DISCHARGE: 07/11/2017 DISCHARGE DATE: 07/11/2017. JUSTIFICATION FOR HOSPITALIZATION: The patient is psychotic, tried to hit staff. HISTORY OF PRESENT ILLNESS: An 81-year-old patient with a long history of mental illness, conserved, trying to hit other people, poor historian, psychotic, delusional, disorganized, nonsensical, grandiose, irritable, angry. PAST PSYCHIATRIC HISTORY: Conserved, long history of mental illness. ALLERGIES: Noted. MEDICATIONS: Noted. FAMILY AND SOCIAL HISTORY: Reviewed. MENTAL STATUS EXAMINATION: Please see full psych eval for details. PROVISIONAL DIAGNOSIS: Rule out bipolar with psychosis. MEDICAL: Please see full H and P. HOSPITAL COURSE: After initial assessment, the patient was started on medications, which she refused. It took some time to conserve her [employer] paper work given some confusion about the dates. It was confirmed that she was conserved. She was given Haldol Decanoate under __power 8a___. She did improve, her mood, improved affect improved. No longer combative, no longer agitated. She remained somewhat delusional, but was no longer unruly, no longer dangerous. Placement was confirmed and she was discharged. She was noted to be eating well, sleeping well, following in rules and directions. CONDITION UPON DISCHARGE: Improved allowing ADLs. Fair eye contact. Speech within normal limits. Mood clinically "okay." Affect flat. Thought processes remain tangential, odd statements. No SI, no HI, no intent, no plan. The patient is still delusional, grandiose. Insight and judgment still diminished. PROVISIONAL DIAGNOSES: Schizophrenia. Under medical, please see full H and P. PROGNOSIS: The patient follows up with outpatient mental health services and remains compliant. Prognosis will improve, otherwise guarded. JOB# [id number] [facility]
--- NOTE | 2017-07-12 07:17 | Progress Notes ---
DATE: 07/09/2017 SUBJECTIVE: Chart reviewed and the patient interviewed. Also discussed the patient's condition with the staff and reviewed the records and labs. The images from 07/09/2017, the patient is still confused. The patient also is rambling and she is combative, especially when staff tried to help her with ADLs and she is still resisting care. The patient also is refusing to take medications for no reason. Trying to talk to the patient about the benefits, side effects, and alternatives of the medications, yet she is confused and is unable to follow my instructions and she gets more agitated and she is rambling with words that are difficult to understand. She also is still restless. ASSESSMENT: The patient is still psychotic and she is still aggressive. TREATMENT PLAN: Continue to monitor her behavior and her condition closely. Also, continue adjusting psychotropic medications and followup. JOB# [id number]
== END 2017-07-11 14:05 | DRG 885 ==
LOC: GERO 16:25 → UNDOADMIN 16:25 → GERO 06-21 06:03
PROVIDERS: ADMIT Psychiatry & Neurology Psychiatry; ATTEND Psychiatry & Neurology Psychiatry
DX: F31.5 Bipolar disorder, current episode depressed, severe, with psychotic features (principal); F03.91 Unspecified dementia, unspecified severity, with behavioral disturbance; E03.9 Hypothyroidism, unspecified; R45.1 Restlessness and agitation; I10 Essential (primary) hypertension; F29 Unspecified psychosis not due to a substance or known physiological condition
CPT/HCPCS: J1630; J1631; Z7610